=== PATIENT | male | born 1975 | race Caucasian/White ===

== ENCOUNTER 2023-07-07 06:57 | Inpatient (IN) | payer OTHER, SELFPAY ==
[2023-07-07] VITALS (16 sets, daily range): BP systolic 110–185; BP diastolic 56–130; BMI 22.4; BMI 21.1
--- NOTE | 2023-07-07 03:40 | ED.GENMED ---
History of Present Illness
General
Chief Complaint: Vomiting Blood
Source: patient
Time Seen by Provider: 07/07/23 03:33
Travel History
Have you had any contact with someone who has COVID-19?: No
Do you have any symptoms of coronavirus? Fever > 100 degrees, chills, cough, shortness of breath, sore throat, loss of taste or smell, muscle aches, or headache?: No
History of Present Illness
History of Present Illness:
47-year-old male presents to the emergency room complaining of vomiting, abdominal pain, no bowel movement for a week. Patient resides at [facility]. He has been experiencing abdominal pain and constipation for the past
several days. He evidently was treated with an enema during the night without improvement. Patient began having vomiting up black material. Patient does have a significant surgical history. He states he had part of his large intestine removed a
couple years ago. 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 Patient states he was in the intensive care unit due to DKA when he developed ischemic bowel.
Past History
Past History
ED Past Medical History: IDDM
ED Past Surgical History: Bowel resection
Social History
Tobacco: Smoker
Alcohol: Occasional
Drug: Marijuana
Employment: Employed
Review of Systems
Review of Systems
All Other Systems: ROS reviewed and negative except as documented in HPI and ROS
Phy Exam
Physical Exam
Physical Exam:
General: Awake, Alert, Oriented X3. Patient appears very uncomfortable
Vitals: Tachycardic
Head: Atraumatic
Eyes: Pupils equal, EOMI
Throat: Airway intact, no exudates
Neck: Trachea midline
Lungs: Clear and equal b/l
Heart: Regular rate, no murmurs
Abd: Soft, distended, diffusely tender, No pulsatile mass
Rectal:
Neuro: Nonfocal
Skin: Warm, dry, no rash
Extremities: pulses equal b/l, no edema
Course
Orders/Labs/Results
Orders:
Orders
07/07/23 03:39
CT Abd/Pel (IV only)-DH only Urgent
Comment:
Reason For Exam: Abdominal pain, vomiting, unable to tolerate oral
0.9% Sodium Chloride 1000 ml [Nss] 1,000 ml IV BOLUS
HYDROmorphone [Dilaudid] 1 mg IV NOW STA
07/07/23 03:41
Ondansetron Injectable [Zofran] 4 mg IV NOW STA
07/07/23 03:59
Complete Blood Count/With Diff Urgent
Comprehensive Metabolic Panel Urgent
Lactic Acid Urgent
Lipase Urgent
07/07/23 04:42
Lorazepam [Ativan] 2 mg .ROUTE .STK-MED ONE
07/07/23 04:43
NG Tube [GI tube insertion- Treatment] ONCE
07/07/23 04:49
Lactated Ringers [Lr] 1,000 ml IV BOLUS
07/07/23 05:40
HYDROmorphone [Dilaudid] 0.5 mg IV NOW STA
Abnormal Lab Results
07/07/23
03:59
WBC 15.9 H 10^3/uL
(4.8-10.8)
MCV 79.8 L fL
(80.0-94.0)
MPV 10.7 H fL
(7.4-10.4)
Abs Immat Gran (auto) 0.1 H 10^3/uL
(0-0.05)
Absolute Neuts (auto) 14.0 H 10^3/uL
(1.4-6.5)
Immature Gran % 0.7 H %
(0-0.5)
Neutrophils % 87.7 H %
(42.2-75.2)
Lymphocytes % 8.0 L %
(20.5-51.1)
Chloride 95 L mmol/L
(98-107)
BUN 25 H mg/dl
(9-20)
Glucose 242 H mg/dl
(70-99)
Lactic Acid 4.0 H* mmol/L
(0.7-2.0)
Calcium 10.7 H mg/dl
(8.4-10.2)
Alkaline Phosphatase 158 H U/L
(38-126)
Total Protein 8.8 H g/dl
(6.3-8.2)
Albumin 5.2 H g/dl
(3.5-5.0)
07/07/23 03:59
07/07/23 03:59
Vital Signs
Initial and Last Documented VS:
Initial Vital Signs
Pulse Resp
126 26
07/07/23 03:20 07/07/23 03:20
Last Documented Vital Signs
Pulse Resp BP Pulse Ox
131 20 141/110 100
07/07/23 05:15 07/07/23 05:15 07/07/23 03:32 07/07/23 03:33
MDM/Problems Addressed
Differential Diagnosis Includes:
small bowel obstruction, gastritis, constipation
MDM/Problems Addressed:
Patient presents with severe abdominal pain, nausea vomiting. His vomitus appears feculent. His exam is concerning for a small bowel obstruction. CT was performed with IV contrast but without oral contrast because the patient could not tolerate
consuming oral contrast. CT suggestive of small bowel obstruction. Radiologist mention swirling of the mesentery and concern for an internal hernia. After receiving the results from [facility] I communicated with Dr. Vann. He will see
the patient this morning. An NG tube was placed. IV fluid resuscitation was initiated with 1 L normal saline to be followed by 1 L of LR. Analgesia provided. We will attempt to obtain the op note from the patient's surgery at [facility]
[place].
Chronic conditions affecting care: DM
*Radiology
Radiology exam reviewed: other (Patient report reviewed.)
*Pulse Oximetry
Patient hypoxic: no
*Inside Sales Director Interpretation
Rate: tachycardiac
Interpretation: abnormal
Rhythm: sinus tachycardia
*Critical Care Note
Total Time (30-74mins, 75-104mins- exclusive of procedures): 35 min
comment:
Critical care statement: A total of 35 minutes of critical care time was provided for this patient. This includes management of unstable vital signs, evaluation of the patient at bedside, reviewing the patient's pertinent medical records, discussion
with consultants, review of old EKGs and review of pertinent medical records. This time with separate from time utilized to perform the aforementioned documented procedures
Patient Management
Social determinants of health affecting care: Living situation ([facility])
ED Attending Note
-
Portions of this chart may have been created with voice recognition software.� Occasional wrong word or��sound alike� substitutions may have occurred due to the inherent limitations of voice recognition software.
Discharge Plan
Departure
Patient Disposition: Admit
Date of Disposition: 07/07/23
Time of Disposition: 05:40
Admit to: Med/Surg and IMU
Presentation/result/management discussed w/ accepting MD/DO: Hospitalist
Condition: Fair
Discharge Problem:
SBO (small bowel obstruction)
Prescriptions:
No Action
levothyroxine 25 mcg Tablet
25 mcg PO DAILY
buspirone 10 mg Tablet
10 mg PO BID
mirtazapine 15 mg Tablet
15 mg PO HS
nortriptyline 50 mg Capsule
50 mg PO HS
insulin NPH and regular human 100 unit/mL (70-30) Insulin Pen
25 unit SC BID
doxycycline hyclate 100 mg capsule
100 mg PO BID Qty: 28 0RF
Referrals:
[facility] [Family Provider] -
Interventions
Interventions:
*General Assessment Last Done: 07/07/23 03:16
*ED COVID-19 Vaccine History Last Done: 07/07/23 03:16
[facility]-Qcsjsl-Hqqgnggjck Assessment Last Done: 07/07/23 03:33
ED- Cardiac Assessment Last Done: 07/07/23 03:33
ED- Pulmonary Assessment Last Done: 07/07/23 03:33
Discharge Date and Time
Print Language: UZBEK
[2023-07-07] MEDS: NSS 1000 IV ×5 (04:04→18:02)
[2023-07-07 04:05] LABS: % Basophils 0.4 % (0-2); % Eosinophils 0.1 % (0-6); % Immature Granulocytes 0.7 % (0-0.5); % Monocytes 3.1 % (1.7-9.3); % Neutrophils 87.7 % (42.2-75.2); Absolute Basophils 0.1 10^3/uL (0-0.2); Absolute Immature Granulocytes 0.1 10^3/uL (0-0.05); Absolute Lymphocytes 1.3 10^3/uL (1.2-3.4); Absolute Monocytes 0.5 10^3/uL (0.1-0.6); Hematocrit 45.3 % (39.0-52.0); Hemoglobin 16.2 g/dL (13.0-18.0); Mean Corp Hgb Conc. 35.8 g/dL (33.0-37.0); Mean Corpuscular Hgb 28.5 pg (27.0-31.0); Mean Corpuscular Volume 79.8 fL (80.0-94.0); Mean Platelet Volume 10.7 fL (7.4-10.4); Nucleated Red Blood Cells % 0 % (-); Platelet Count 302 10^3/uL (130-400); Red Blood Cell Count 5.68 10^6/uL (4.70-6.10); Red Cell Dist. Width 12.5 % (11.5-14.5); White Blood Cell Count 15.9 10^3/uL (4.8-10.8)
[2023-07-07] MEDS: DILAUDID 1 MG IV ×2 (04:05→22:40)
[2023-07-07] MEDS: ZOFRAN 4 MG IV ×2 (04:05→07:10)
[2023-07-07 04:26] LABS: ALT (SGPT) 41 U/L (0-50); AST (SGOT) 36 U/L (17-59); Albumin 5.2 g/dl (3.5-5.0); Alkaline Phosphatase 158 U/L (38-126); Blood Urea Nitrogen 25 mg/dl (9-20); Calcium 10.7 mg/dl (8.4-10.2); Carbon Dioxide 27 mmol/L (22-30); Chloride 95 mmol/L (98-107); Estimated Creatinine Clearance 77 ml/min; Glucose 242 mg/dl (70-99); Lipase 121 U/L (23-300); Potassium 4.6 mmol/L (3.5-5.1); Sodium 138 mmol/L (135-145); Total Bilirubin 1.2 mg/dl (0.2-1.3); Total Protein 8.8 g/dl (6.3-8.2); eGFR > 60.00
[2023-07-07] MEDS: DILAUDID 0.5 MG IV ×5 (05:43→18:01)
[2023-07-07] MEDS: LR 1000 IV (06:23)
--- NOTE | 2023-07-07 06:29 | HPS.HSE ---
Family Physician
-
Family Physician: Facility [facility]
Chief Complaint
-
Abd Pain, N/V
History of Present Illness
Patient is a 47y M with PMH significant for DM-I and prior small bowel resection / mesenteric ischemia who presents to ED complaining of abdominal pain and N/V. Patient states that he started with diffuse abdominal pain on . He
developed N/V x multiple episodes and noted some dark / coffee-ground emesis. No bright red blood. Patient was brought to the ED for further evaluation and treatment. CT shows evidence of SBO with possible transition at anastomosis site and
possible internal hernia.
NG was placed in the ED for large amount of dark, bilious return. Patient notes minimal improvement in his symptoms thus far.
Patient states that he has not moved his bowels in > 1 week.
Medical History
Past Medical History
Past Medical History: Reports Other
Additional Past Medical History:
DM-I with Polyneuropathy
GERD
Ischemic Bowel
Cardiac Arrest
? Thyroid Disease
Past Surgical History: Reports Other
Additional Past Surgical History:
Ex Lap / Small Bowel Resection
Left Great Toe Amputation
Social History
Tobacco: Smoker (Daily vape use +/- cigarettes. 30 pack years.)
Alcohol: None
Drug: Former User (History of polysubstance abuse including IVDA. Last IV use was 2014.)
Living: Halfway
Family History
Family History: Not pertinent
Allergies / Home Medications
Allergies reflects when Allergies were last updated in [facility].
Home Medications with original date entered in [facility]
Allergy/Medication List:
Allergies
Allergy/AdvReac Type Severity Reaction Status Date / Time
No Known Allergies Allergy Verified 07/07/23 03:16
Home Medications
amoxicillin 500 mg tablet 500 mg PO BID 07/07/23
bisacodyl 5 mg tablet,delayed release (Dulcolax (bisacodyl)) 10 mg PO BIDPRN PRN Constipation 07/07/23
clonazepam 0.5 mg tablet 0.5 mg PO BID 07/07/23
diphenhydramine HCl 25 mg capsule (Benadryl) 25 mg PO DAILY 07/07/23
docusate sodium 100 mg tablet 100 mg PO BID 07/07/23
ibuprofen 400 mg tablet 400 mg PO TID 07/07/23
insulin human U-100 NPH-regulr 70-30 mix 100 unit/mL subcutaneous susp 20 unit SC BID 07/07/23
quetiapine 25 mg tablet (Seroquel) 25 mg PO DAILY 07/07/23
quetiapine 50 mg tablet (Seroquel) 50 mg PO HS PRN Sleep 07/07/23
Review of Systems
-
History Source: Patient
A 12 point ROS was completed and negative except as noted: Yes
Constitutional: Denies Fever or Chills
Respiratory: Denies Cough or Trouble Breathing
Cardiac: Denies Chest Pain or Palpitations
Abdomen/GI: Reports Abdominal Pain, Nausea, Vomiting and Constipated; Denies Bloody Stools or Black Stools
: Denies Dysuria or Frequency
Musculoskeletal: Denies Edema
Neurological: Denies Dizzy or Headache
Physical Exam
Vital Signs
Vital Signs
Pulse Resp BP Pulse Ox
122 25 166/109 100
07/07/23 06:00 07/07/23 06:00 07/07/23 06:00 07/07/23 03:33
Physical Exam
General: Other (47y M in mild distress due to pain / nausea.)
HEENT: Moist mucous membranes, PERRLA and Other (NG in place draining copious, dark, bilious fluid.)
Respiratory: Clear; No Wheezes, Rales or Rhonchi
Cardiac: S1/S2 and Regular Rhythm; No Murmur
GI: Other (Bowel sounds are diminished but present. Mild, diffuse tenderness with voluntary guarding. No rebound. )
Musculoskeletal: No Clubbing, No Cyanosis and No Edema
Neuro: AO x 3
Laboratory Results
-
07/07/23 03:59
07/07/23 03:59
Laboratory Results
Lactic Acid 4.0 mmol/L (0.7-2.0) H* 07/07/23 03:59
Total Bilirubin 1.2 mg/dl (0.2-1.3) 07/07/23 03:59
AST 36 U/L (17-59) 07/07/23 03:59
ALT 41 U/L (0-50) 07/07/23 03:59
Alkaline Phosphatase 158 U/L (38-126) H 07/07/23 03:59
Lipase 121 U/L (23-300) 07/07/23 03:59
Impression/Plan
-
A/P: Patient is a 47y M with PMH significant for DM-I and prior intestinal ischemia who presents to ED complaining of abdominal pain with multiple episodes of N/V over the past 2 days.
SBO
Lactic Acidosis
- Admit for further evaluation and treatment.
- Continue NG decompression and quantify output.
- Supportive care including IVFs, pain control, etc.
- Follow lactate level for improvement with IVFs.
- Surgery consult for further evaluation.
GABY
Hypercalcemia
- SCr = 1.2 compared to prior baseline of 0.7.
- Likely secondary to prerenal etiology / hypovolemia due to GI losses.
- IVF support as noted above.
- Follow for improvement.
DM-I with Peripheral Polyneuropathy
- Stable. Maintained on 70/30 insulin + SSI.
- Change to Lantus for now while NPO.
- Monitor glucose and cover with SSI as needed.
- Update A1C.
- Adjust regimen for adequate glycemic control.
Mood Disorder
Polysubstance Abuse
- Hold PO medications for now with SBO / NG in place.
- Change BZD to IV / PRN.
- Change quetiapine to Zyprexa disintegrating tabs.
- Resume usual regimen once able to take POs.
- Try to minimize opioid use for pain control.
GERD / PUD
- Daily IV PPI.
Questionable Thyroid Disease
- Prior records suggest hypothyroidism and patient was previously on T4 supplementation.
- He denies thyroid disease and is not currently on any replacement.
- Check TFTs.
Dental Extraction
- Patient had tooth extracted . On hyacnith-procedure amoxicillin for prophylaxis.
- On IV Zosyn for now - discontinue if no fevers, worsening abdominal symptoms, etc.
DVT Prophylaxis: SCDs
Code Status: Full
[2023-07-07] MEDS: ATIVAN 0.5 MG IV ×2 (09:05→22:19)
[2023-07-07] MEDS: TORADOL 15 MG IV (09:05)
--- NOTE | 2023-07-07 09:16 | CON.GS ---
Consultation
-
Reason for Consultation: Small bowel obstruction
Medical History
-
Chief Complaint: Abdominal pain, nausea vomiting
History of Present Illness:
Patient is a 47-year-old male who reports a past surgical history of having undergone pyloromyotomy as a infant/child and then approximately 2 years ago developed a bowel obstruction undergoing exploratory laparotomy with a small bowel resection.
He was in his usual baseline state of health until when he began developing the acute onset of diffuse abdominal pain which continued to decline over the next 24 hours with nausea and vomiting and coffee-ground emesis. He was transported
from the [facility] to emergency department for evaluation early this a.m.
Last bowel movement reportedly a week ago.
Continues to experience abdominal pain and retching at times around the NG tube.
Past Medical History
Past Medical History: Other (Type 1 diabetes, polyneuropathy, GERD, cardiac arrest, thyroid disease)
Past Surgical History: Other (Left great toe amputation, pyloromyotomy as an , exploratory laparotomy small bowel suction 2021)
Social History
Tobacco: Smoker
Alcohol: None
Drug: Former User
Living: Long-Term
Family History
Family History: Reviewed & Not Pertinent
Allergies / Home Medications
Allergy/AdvReac Type Severity Reaction Status Date / Time
No Known Allergies Allergy Verified 07/07/23 03:16
�Medication �Instructions �Recorded �Confirmed �Type
amoxicillin 500 mg tablet 500 mg PO BID 07/07/23 07/07/23 History
bisacodyl 5 mg tablet,delayed 10 mg PO BIDPRN PRN Constipation 07/07/23 07/07/23 History
release (Dulcolax (bisacodyl))
clonazepam 0.5 mg tablet 0.5 mg PO BID 07/07/23 07/07/23 History
diphenhydramine HCl 25 mg capsule 25 mg PO DAILY 07/07/23 07/07/23 History
(Benadryl)
docusate sodium 100 mg tablet 100 mg PO BID 07/07/23 07/07/23 History
ibuprofen 400 mg tablet 400 mg PO TID 07/07/23 07/07/23 History
insulin human U-100 NPH-regulr 20 unit SC BID 07/07/23 07/07/23 History
70-30 mix 100 unit/mL subcutaneous
susp
quetiapine 25 mg tablet (Seroquel) 25 mg PO DAILY 07/07/23 07/07/23 History
quetiapine 50 mg tablet (Seroquel) 50 mg PO HS PRN Sleep 07/07/23 07/07/23 History
Review of Systems
-
Unable to obtain full review of systems at this time due to: Acuity
History Source: Patient
A 10 point review of systems was completed, and was negative except as per HPI.
Physical Exam
Vital Signs
Pulse Resp BP Pulse Ox
121 17 159/109 100
07/07/23 07:45 07/07/23 07:45 07/07/23 07:38 07/07/23 07:45
07/06/23 07/07/23 07/08/23
06:59 06:59 06:59
Actual Weight 72.7 kg
Body Mass Index (BMI) 22.4
Lab Results
07/07/23 03:59
07/07/23 03:59
WBC 15.9 10^3/uL (4.8-10.8) H 07/07/23 03:59
Hgb 16.2 g/dL (13.0-18.0) 07/07/23 03:59
Hct 45.3 % (39.0-52.0) 07/07/23 03:59
Plt Count 302 10^3/uL (130-400) 07/07/23 03:59
Abs Immat Gran (auto) 0.1 10^3/uL (0-0.05) H 07/07/23 03:59
Neutrophils % 87.7 % (42.2-75.2) H 07/07/23 03:59
Physical Exam
General: Pain and Other (Uncomfortable, retching around NG tube)
HEENT: Normocephalic, Anicteric and Moist Mucous Membranes
Respiratory: Non Labored Respirations
Cardiac: Regular Rhythm (Sinus tachycardia)
GI: Non Tender (Diffusely tender, difficult to assess rebound rigidity or guarding), Distended, Incisions (Right upper quadrant horizontal surgical scar, midline laparotomy surgical scar, no hernias) and Other (NG tube in place, flushed numerous
times to confirm functionality getting 500 to 600 mL of return)
Skin: Warm
Neuro: AO x 3
Data Reviewed
-
CT Scan: Image Personally Visualized and interpreted, Report Reviewed by me and Discussed with Patient
Labs: Labs Reviewed by me
Assessment / Plan
-
Assessment: Patient is a 47-year-old male presented with acute small bowel obstruction with secondary leukocytosis, dehydration with ARF and lactic acidosis but normal carbon dioxide on labs earlier in a.m.
CT imaging personally reviewed. Severely dilated stomach and proximal small bowel loops. Transition point appears to be just at or distal to his small bowel anastomosis. There is some surrounding edema and free fluid. No free air, no
pneumatosis, no portal venous gas. Large stool burden. Distal ileum decompressed. Paucity of intra-abdominal fat makes it difficult to determine but there does not appear to be a closed-loop obstruction although this is likely high-grade.
NG tube functionality was confirmed by myself getting back an additional 500 to 600 mL of gastric contents.
Discussed with patient CT imaging findings consistent with probable high-grade small bowel obstruction. No clear radiographic signs of bowel compromise or ischemia other than degree of obstruction. We discussed treatment options of NG tube
decompression versus surgical intervention. Secondary to patient's current extremis we would lean towards surgical intervention which he is in agreement with. That being said, I think he could benefit from more aggressive resuscitation and NG tube
decompression and current OR team in middle of the operative procedure.
Plan: Additional liter bolus of normal saline followed by aggressive IV fluid resuscitation
Adjusted IV pain medication regiment
Discontinue Toradol
Maintain NG tube
Tentatively added patient onto the OR schedule however will reevaluate to see if there is any clinical improvement with further NG tube decompression and supportive care as we are waiting for availability of an OR.
Will continue to closely follow.
[2023-07-07 10:00] LABS: Lactic Acid 3.6 mmol/L (0.7-2.0)
[2023-07-07 10:02] LABS: % Basophils 0.3 % (0-2); % Immature Granulocytes 0.4 % (0-0.5); % Lymphocytes 6.8 % (20.5-51.1); % Monocytes 6.9 % (1.7-9.3); % Neutrophils 85.6 % (42.2-75.2); Absolute Lymphocytes 0.8 10^3/uL (1.2-3.4); Absolute Monocytes 0.8 10^3/uL (0.1-0.6); Absolute Neutrophils 9.7 10^3/uL (1.4-6.5); Hematocrit 43.9 % (39.0-52.0); Hemoglobin 15.5 g/dL (13.0-18.0); Mean Corp Hgb Conc. 35.3 g/dL (33.0-37.0); Mean Corpuscular Hgb 28.7 pg (27.0-31.0); Mean Corpuscular Volume 81.1 fL (80.0-94.0); Nucleated Red Blood Cells % 0 % (-); Platelet Count 260 10^3/uL (130-400); Red Blood Cell Count 5.41 10^6/uL (4.70-6.10); Red Cell Dist. Width 12.6 % (11.5-14.5); White Blood Cell Count 11.3 10^3/uL (4.8-10.8)
[2023-07-07 10:26] LABS: Blood Urea Nitrogen 30 mg/dl (9-20); Calcium 8.6 mg/dl (8.4-10.2); Carbon Dioxide 28 mmol/L (22-30); Chloride 96 mmol/L (98-107); Estimated Creatinine Clearance 71 ml/min; Glucose 353 mg/dl (70-99); Potassium 5.2 mmol/L (3.5-5.1); Sodium 135 mmol/L (135-145); eGFR > 60.00
--- NOTE | 2023-07-07 11:31 | W.PN.SURGUPD ---
Surgical Update
Surgical Update
Patient seen in follow-up in the emergency department.
Overall appears more comfortable, resting in his bed.
NG tube remains in place.
Patient states that he still has pain/discomfort but does report significant improvement
No further retching with NG tube
Tachycardia improving to the 110s; normotensive
NAD, AAOx3
ABD: More soft still a bit distended, mild tenderness but no significant rigidity and no guarding
NG tube in place
Laboratory testing reviewed. White blood cell count improved to 13.3. Hemoglobin stable at 15 5 as well as platelet count.
Lactic acidosis slightly improved 3.6, creatinine stable 1.3 BUN 30. Hyperkalemia now at 5.2 but patient's glucose now 353.
Given clinical improvement with NG tube decompression and no peritoneal signs on examination had further discussions with patient and recommended continued close observation with NG tube decompression, aggressive IV fluid hydration and glucose
management.
Still potentially may need surgery but deferring on urgency at this point as no clear signs of immediate bowel threat or compromise. Surgery would likely be safe for both from a surgical as well as medical risk standpoint after continue
resuscitation and decompression
Ordered an additional 1 L bolus of normal saline
Continue normal saline at 150 mL an hour
Continue NG tube decompression
Repeat labs in evening
Discussed with Dr. Ahmadi
[2023-07-07] MEDS: LANTUS SC (11:38)
[2023-07-07] MEDS: NSS IV (11:39)
[2023-07-07] MEDS: PROTONIX IV 40 MG IV (12:03)
[2023-07-07] MEDS: NSS (PRESERVATIVE FREE) 10 ML IV (12:04)
[2023-07-07] MEDS: ZOSYN 50 IV (12:08)
[2023-07-07 12:18] LABS: Glucose - Point of Care 373 mg/dl (70-99)
--- NOTE | 2023-07-07 12:45 | W.PN.HOSP.TC ---
Today's Communication/Plan
-
Insulin
Hemoglobin A1c
TSH
IV fluids
N.p.o.
Assessment / Plan
Assessment / Plan
Gen-AAOx3, NAD
HEENT-NC, AT, anicteric, clear oral mm
Neck-supple
CV-reg, no M, +S1/S2
Lungs-clear B/L
Abd-soft, nondistended, mildly tender diffusely, no guarding
Ext-no edema
Musculoskeletal-no cyanosis, clubbing
Skin-warm and dry
Neuro-grossly non-focal
Psych-calm, cooperative
Small bowel obstruction -discussed with Dr. Mcgregor. Keep n.p.o., IV fluids, monitor overnight. Lactic acidosis noted, repeat pending.
DM1 with hyperglycemia -glucose 353 this morning. Hemoglobin A1c pending. He uses 25 units of 70/30 insulin twice daily, regular insulin sliding scale. Doubt compliance given his drug abuse history and recent incarceration. Anion gap 11. No
evidence of DKA.
Currently on glargine insulin 8 units twice daily and low resistance NovoLog scale in the hospital.
GABY -due to volume depletion. Continue IV fluids. Creatinine 1.3. Baseline unknown.
Hyperkalemia -potassium 5.2.
Diabetic peripheral neuropathy
Polysubstance abuse history
GERD/peptic ulcer disease
Recent dental extraction -stop further IV antibiotics. Observe.
Full code
Anticipated Discharge: > 48 hours
Subjective/Interval History
-
Date of Service: July 07, 2023
Patient seen and examined. Lying on his stomach when I walked in, still complaining of abdominal discomfort.
Objective Data
-
Labs:
Laboratory Results
07/07/23 07/07/23 07/07/23
03:59 09:38 09:39
WBC 15.9 H 11.3 H
Hgb 16.2 15.5
Hct 45.3 43.9
Plt Count 302 260
Sodium 138 135
Potassium 4.6 5.2 H
Chloride 95 L 96 L
Carbon Dioxide 27 28
BUN 25 H 30 H
Creatinine 1.2 1.3
Glucose 242 H 353 H
Calcium 10.7 H 8.6 D
Total Bilirubin 1.2
AST 36
ALT 41
Alkaline Phosphatase 158 H
07/07/23
18:00
WBC Pending
Hgb Pending
Hct Pending
Plt Count Pending
Sodium Pending
Potassium Pending
Chloride Pending
Carbon Dioxide Pending
BUN Pending
Creatinine Pending
Glucose Pending
Calcium Pending
Total Bilirubin
AST
ALT
Alkaline Phosphatase
Vital Signs:
Vital Signs
Pulse Resp BP Pulse Ox
115 13 128/76 100
07/07/23 11:15 07/07/23 11:15 07/07/23 11:02 07/07/23 11:02
Review of Systems
-
History Source: Patient
All other systems: Reviewed and negative
[2023-07-07] MEDS: LANTUS 0.0800000000000000017 UNITS SC ×2 (12:49→22:41)
[2023-07-07] MEDS: NOVOLOG FLEXPEN-LOW RESISTANCE 5 UNITS SC (12:51)
[2023-07-07] MEDS: NOVOLOG FLEXPEN-LOW RESISTANCE SC (13:40)
[2023-07-07 14:13] LABS: Glycohemoglobin (HgbA1c) 11.3 % (4.0-5.6)
[2023-07-07 14:56] LABS: TSH Reflex To Free T4 1.99 uIU/ml (0.47-4.68)
[2023-07-07 17:29] LABS: Hemoglobin 13.8 g/dL (13.0-18.0); Mean Corp Hgb Conc. 35.4 g/dL (33.0-37.0); Mean Corpuscular Hgb 28.7 pg (27.0-31.0); Mean Corpuscular Volume 81.1 fL (80.0-94.0); Mean Platelet Volume 10.7 fL (7.4-10.4); Platelet Count 245 10^3/uL (130-400); Red Blood Cell Count 4.81 10^6/uL (4.70-6.10); Red Cell Dist. Width 12.8 % (11.5-14.5); White Blood Cell Count 12.3 10^3/uL (4.8-10.8)
[2023-07-07 17:42] LABS: Lactic Acid 1.9 mmol/L (0.7-2.0)
[2023-07-07 17:43] LABS: Blood Urea Nitrogen 44 mg/dl (9-20); Calcium 8.1 mg/dl (8.4-10.2); Carbon Dioxide 26 mmol/L (22-30); Chloride 99 mmol/L (98-107); Estimated Creatinine Clearance 62 ml/min; Glucose 402 mg/dl (70-99); Sodium 136 mmol/L (135-145); eGFR > 60.00
[2023-07-07] MEDS: NOVOLOG FLEXPEN-LOW RESISTANCE 6 UNITS SC (18:31)
[2023-07-07] MEDS: ZYPREXA ZYDIS (ORALLY DISINTEGRATING) 5 MG PO (22:18)
[2023-07-07 22:20] LABS: Lactic Acid 4.2 mmol/L (0.7-2.0)
[2023-07-07 23:51] LABS: Glucose - Point of Care 264 mg/dl (70-99)
[2023-07-08] MEDS: NSS 1000 IV ×3 (00:21→11:38)
[2023-07-08] MEDS: NOVOLOG FLEXPEN-LOW RESISTANCE 3 UNITS SC (00:22)
--- NOTE | 2023-07-08 01:35 | W.PN.UPDATE ---
Update Note
Progress Note Update
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 was given 2L of fluids and maintained on NSS @150cc/hr. Patient seen any evaluated. + BS, soft, tender to deep palpation, no guarding noted, sated he had small BM with diarrhea, NG tube in
place draining green bile 800 CC drained at 10 PM, Reports 08/28, although not in apparent distress, Denies any chest pain or shortness of breath, 98.7, 102, 16, 110/73, 98% RA, BS 264, Dr. Mcgregor made aware via text, advised to give 1L NS bolus,
Will order lactic acid in AM, and maintain on IV fluids after the bolus. No other complaints at present.
[2023-07-08 03:00] VITALS: BP 127/65
[2023-07-08 04:13] LABS: Lactic Acid 1.6 mmol/L (0.7-2.0)
[2023-07-08 05:48] LABS: Glucose - Point of Care 157 mg/dl (70-99)
[2023-07-08] MEDS: NOVOLOG FLEXPEN-LOW RESISTANCE 1 UNITS SC ×2 (05:56→18:07)
[2023-07-08] MEDS: DILAUDID 1 MG IV ×2 (05:58→22:34)
[2023-07-08 07:21] VITALS: BP 118/66
--- NOTE | 2023-07-08 07:42 | W.PN.GS2 ---
Today's Communication / Plan
-
`
Assessment / Plan
-
Assessment: 47-year-old male presenting with probable high-grade small bowel obstruction.
Has responded well to aggressive IV fluid resuscitation and NG tube decompression with significant clinical improvement both in examination and vital signs.
A.m. labs pending
Drank fluids overnight so difficult to tell if NG tube outputs which are nonbilious in the canister are due to oral intake or true drainage
Plan: Given clinical improvement will obtain CT abdomen/pelvis with contrast to reevaluate degree of small bowel obstruction
If CT imaging confirms continued high-grade obstruction then recommend surgical intervention
If obstruction improving and partial then continue with medical management
Any of the patient's concerns or questions were fully addressed
Subjective Data
-
Date of Service: July 08, 2023
Patient seen and examined
Resting comfortably in his hospital bed
States his abdominal pain is much better than yesterday, no nausea, appetite returning
Still has some discomfort at times
Had bowel movements yesterday afternoon/evening semiformed to liquid
Objective Data
-
Intake and Output
07/07/23 07/08/23 07/09/23
06:59 06:59 06:59
Intake Total 120 / 120 240 / 240
Output Total 4910 / 4910 650 / 650
Balance -4790 / -4790 -410 / -410
Intake:
Oral fluids 240 / 240
Amount instilled into GI Tube ( 120 / 120
Total)
[place] Sump 120 / 120
Output:
Gastrointestinal tube output ( 4210 / 4210
Total)
[place] Sump 1710 / 1710
Urine, Voided 700 / 700 650 / 650
Other:
Number of approximated MODERATE 1
amounts of urine
Vital Signs
Temp Pulse Resp BP Pulse Ox
99.0 F 104 20 127/65 97
05/19/24 03:00 07/08/23 03:00 07/08/23 03:00 07/08/23 03:00 07/08/23 03:00
Calcium 8.1 mg/dl (8.4-10.2) L 07/07/23 17:19
Total Bilirubin 1.2 mg/dl (0.2-1.3) 07/07/23 03:59
AST 36 U/L (17-59) 07/07/23 03:59
ALT 41 U/L (0-50) 07/07/23 03:59
Alkaline Phosphatase 158 U/L (38-126) H 07/07/23 03:59
Total Protein 8.8 g/dl (6.3-8.2) H 07/07/23 03:59
Albumin 5.2 g/dl (3.5-5.0) H 07/07/23 03:59
Physical Exam
-
NAD AAOx3; comfortable and moving around freely in bed for examination
ABD: Softly distended, not tense like yesterday. Mild generalized tenderness, no rebound, no rigidity, no guarding
[2023-07-08] MEDS: OMNIPAQUE 50 ML PO (08:18)
[2023-07-08] MEDS: LANTUS 0.0800000000000000017 UNITS SC ×2 (08:19→22:33)
[2023-07-08] MEDS: PROTONIX IV 40 MG IV (08:19)
[2023-07-08] MEDS: NSS (PRESERVATIVE FREE) 10 ML IV (08:19)
[2023-07-08 08:48] LABS: Hematocrit 34.4 % (39.0-52.0); Hemoglobin 11.5 g/dL (13.0-18.0); Mean Corp Hgb Conc. 33.4 g/dL (33.0-37.0); Mean Corpuscular Hgb 28.7 pg (27.0-31.0); Mean Corpuscular Volume 85.8 fL (80.0-94.0); Mean Platelet Volume 10.9 fL (7.4-10.4); Platelet Count 198 10^3/uL (130-400); Red Blood Cell Count 4.01 10^6/uL (4.70-6.10); Red Cell Dist. Width 12.8 % (11.5-14.5); White Blood Cell Count 8.2 10^3/uL (4.8-10.8)
[2023-07-08 09:05] LABS: Blood Urea Nitrogen 36 mg/dl (9-20); Calcium 7.6 mg/dl (8.4-10.2); Carbon Dioxide 27 mmol/L (22-30); Chloride 103 mmol/L (98-107); Estimated Creatinine Clearance 87 ml/min; Glucose 155 mg/dl (70-99); Sodium 137 mmol/L (135-145); eGFR > 60.00
--- NOTE | 2023-07-08 09:29 | W.PN.HOSP.TC ---
Today's Communication/Plan
-
CT scan
Assessment / Plan
Assessment / Plan
Gen-AAOx3, NAD
HEENT-NC, AT, anicteric, clear oral mm, NG tube in place
Neck-supple
CV-reg, no M, +S1/S2
Lungs-clear B/L
Abd-soft, nondistended, less tender, no guarding
Ext-no edema
Musculoskeletal-no cyanosis, clubbing
Skin-warm and dry
Neuro-grossly non-focal
Psych-calm, cooperative
Small bowel obstruction -improving overall. Moved bowels yesterday. For repeat CT abdomen and pelvis today as per surgery. Still NPO.
DM1 with hyperglycemia -glucose improving. Hemoglobin A1c 11.3%. He uses 25 units of 70/30 insulin twice daily, regular insulin sliding scale. Doubt compliance given his drug abuse history and recent incarceration. No evidence of DKA.
Currently on glargine insulin 8 units twice daily and low resistance NovoLog scale in the hospital.
GABY -due to volume depletion. Renal function improved with IV fluids.
Hyperkalemia -resolved.
Diabetic peripheral neuropathy
Polysubstance abuse history
GERD/peptic ulcer disease
Recent dental extraction -stop further IV antibiotics. Observe.
Full code
Anticipated Discharge: 24 - 48 hours
Subjective/Interval History
-
Date of Service: July 08, 2023
Patient seen and examined. Feeling better overall. No complaints.
Objective Data
-
Labs:
Laboratory Results
07/08/23
08:25
WBC 8.2
Hgb 11.5 L
Hct 34.4 L
Plt Count 198
Sodium 137
Potassium 4.0
Chloride 103
Carbon Dioxide 27
BUN 36 H
Creatinine 1.0
Glucose 155 H
Calcium 7.6 L
Vital Signs:
Vital Signs
Temp Pulse Resp BP Pulse Ox
98.4 F 90 18 118/66 96
07/08/23 07:21 07/08/23 07:21 07/08/23 07:21 07/08/23 07:21 07/08/23 07:21
I&O
07/07/23 07/08/23 07/09/23
06:59 06:59 06:59
Intake Total 120 / 120 240 / 240
Output Total 4910 / 4910 650 / 650
Balance -4790 / -4790 -410 / -410
Review of Systems
-
History Source: Patient
All other systems: Reviewed and negative
[2023-07-08 11:21] VITALS: BP 144/76
[2023-07-08 11:29] LABS: Glucose - Point of Care 105 mg/dl (70-99)
[2023-07-08] MEDS: NOVOLOG FLEXPEN-LOW RESISTANCE SC ×2 (11:29→14:41)
[2023-07-08] MEDS: DILAUDID 0.5 MG IV ×2 (11:38→18:08)
--- NOTE | 2023-07-08 13:39 | W.PN.SURGUPD ---
Surgical Update
Surgical Update
pt seen and examined in follow up after CT imaging
drank oral contrast well. no nausea or pain with contrast. thirsty and asking to drink.
NGT on LIWS and no residual
CT imaging reviewed. much improvement in prior gastric and SB distention. residual SB dilation and some thickening/edema
obstruction may be resolving, oral contras seems to pass distal to anastomosis but not yet into the colon.
given clinical improvement will PO challenge with NGT clamped.
start with clears only today. if nausea/distention returns then would return NGT to LIWS
follow up abd xray in AM
[2023-07-08 14:00] LABS: Glucose - Point of Care 111 mg/dl (70-99)
--- NOTE | 2023-07-08 16:23 | CM ---
Patient from [facility].
DX SBO, ct scan. NPO, ngt.
Plan: Back to [facility]
[2023-07-08 17:57] LABS: Glucose - Point of Care 194 mg/dl (70-99)
[2023-07-08 19:43] VITALS: BP 117/75
[2023-07-08] MEDS: ATIVAN 0.5 MG IV (20:36)
[2023-07-08] MEDS: ZYPREXA ZYDIS (ORALLY DISINTEGRATING) 5 MG PO (20:36)
[2023-07-08] MEDS: NSS (PRESERVATIVE FREE) 0.25 ML IV (20:37)
[2023-07-08 23:03] VITALS: BP 155/96
[2023-07-09 00:38] LABS: Glucose - Point of Care 66 mg/dl (70-99)
--- NOTE | 2023-07-09 00:50 | PTCARENOTE ---
Pt had blood sugar of 66. RN entered the room to give 4oz of juice per hypoglycemia protocol. PT stated they pulled out their [place] sump tube. HOME HEALTH SPEECH THERAPIST Sirena Chu notified via [place] text.
[2023-07-09 01:08] LABS: Glucose - Point of Care 58 mg/dl (70-99)
[2023-07-09 01:23] LABS: Glucose - Point of Care 67 mg/dl (70-99)
[2023-07-09 01:57] LABS: Glucose - Point of Care 134 mg/dl (70-99)
[2023-07-09] MEDS: D5/0.9% SODIUM CHLORIDE 1000 IV ×2 (02:37→13:14)
[2023-07-09] MEDS: DILAUDID 1 MG IV ×5 (03:07→17:42)
[2023-07-09 03:50] VITALS: BP 145/98
[2023-07-09 04:55] LABS: Glucose - Point of Care 182 mg/dl (70-99)
[2023-07-09 06:02] LABS: Glucose - Point of Care 190 mg/dl (70-99)
[2023-07-09 07:00] VITALS: BP 143/82
[2023-07-09] MEDS: NSS IV (07:54)
[2023-07-09 09:48] LABS: Glucose - Point of Care 172 mg/dl (70-99)
[2023-07-09] MEDS: NOVOLOG FLEXPEN-LOW RESISTANCE 1 UNITS SC (09:52)
[2023-07-09] MEDS: PROTONIX IV 40 MG IV (09:53)
[2023-07-09] MEDS: LANTUS 0.0800000000000000017 UNITS SC ×2 (09:53→22:49)
[2023-07-09] MEDS: NSS (PRESERVATIVE FREE) 10 ML IV (09:53)
[2023-07-09] MEDS: ATIVAN 0.5 MG IV ×2 (10:40→22:47)
[2023-07-09 11:00] VITALS: BP 150/94
--- NOTE | 2023-07-09 11:19 | CM ---
relief manager reviewed patient's chart and plan is for patient to return to [facility] when stable.
[facility]

Plan; Patient to return to [facility] when stable.
--- NOTE | 2023-07-09 11:38 | W.PN.GS2 ---
Today's Communication / Plan
-
Continue nonoperative management of his small bowel obstruction.
Okay for fulls.
Assessment / Plan
-
Assessment: 47-year-old incarcerated male with a history of an open pyloromyotomy as a child as well as an SBR for 'necrotic bowel' at [facility] who presents from custodial with a probable high-grade small bowel obstruction on CT. X-ray from this
morning demonstrates improved small bowel distention, though this is still present and air in the colon with minimal fecal load compared to CT. Difficult to identify any residual contrast.
Continue nonoperative management of small bowel obstruction.
Okay for full liquid diet
Now that he is passing flatus and having return of bowel function, would be aggressive with his bowel regimen twice daily Dulcolax, daily MiraLAX and suppositories as needed.
Minimize narcotics as this will contribute to constipation and potentially increasing his pain.
General surgery will continue to follow with serial abdominal exams.
Time Spent
Total Time Spent with Patient (in minutes): 20
Subjective Data
-
Date of Service: July 09, 2023
Interval Events:
No acute events overnight. Slept well. Pain Controlled. Denies Nausea/Vomiting, +bowel function. Tolerating diet.
Objective Data
-
Intake and Output
07/08/23 07/09/23 07/10/23
06:59 06:59 06:59
Intake Total 120 / 120 1740 / 1740
Output Total 4910 / 4910 5050 / 5050
Balance -4790 / -4790 -3310 / -3310
Intake:
Oral fluids 1660 / 1660
Amount instilled into GI Tube ( 120 / 120 80 / 80
Total)
[place] Sump 120 / 120 80 / 80
Output:
Gastrointestinal tube output ( 4210 / 4210 1400 / 1400
Total)
Gastrostomy 700 / 700
[place] Sump 1710 / 1710 700 / 700
Urine, Voided 700 / 700 3650 / 3650
Other:
Number of approximated MODERATE 1
amounts of urine
Vital Signs
Temp Pulse Resp BP Pulse Ox
98.6 F 85 16 143/82 98
07/09/23 07:00 07/09/23 07:00 07/09/23 07:00 07/09/23 07:00 07/09/23 07:00
Lab Results
07/08/23 08:25
07/08/23 08:25
Calcium 7.6 mg/dl (8.4-10.2) L 07/08/23 08:25
Total Bilirubin 1.2 mg/dl (0.2-1.3) 07/07/23 03:59
AST 36 U/L (17-59) 07/07/23 03:59
ALT 41 U/L (0-50) 07/07/23 03:59
Alkaline Phosphatase 158 U/L (38-126) H 07/07/23 03:59
Total Protein 8.8 g/dl (6.3-8.2) H 07/07/23 03:59
Albumin 5.2 g/dl (3.5-5.0) H 07/07/23 03:59
Physical Exam
-
GENERAL/NEURO: Awake, Alert, no distress
CHEST: Unlabored breathing on RA
ABDOMEN: Soft, Non-Tender, mildly distended
--- NOTE | 2023-07-09 11:39 | W.PN.HOSP.TC ---
Today's Communication/Plan
-
diet per surgery
trend poc
Assessment / Plan
Assessment / Plan
Gen-AAOx3, NAD
HEENT-NC, AT, anicteric, clear oral mm,
Neck-supple
CV-reg, no M, +S1/S2
Lungs-clear B/L
Abd-soft, nondistended non tender, no guarding
Ext-no edema
Musculoskeletal-no cyanosis, clubbing
Skin-warm and dry
Neuro-grossly non-focal
Psych-calm, cooperative
Small bowel obstruction -improving overall. Moved bowels earlier today. AXR with improvement. on Fulls. advance per surgery.
DM1 with hyperglycemia -glucose improving. Hemoglobin A1c 11.3%. He uses 25 units of 70/30 insulin twice daily, regular insulin sliding scale. Doubt compliance given his drug abuse history and recent incarceration. No evidence of DKA.
Currently on glargine insulin 8 units twice daily and low resistance NovoLog scale in the hospital. POC 172
GABY -due to volume depletion. Renal function improved with IV fluids.
Hyperkalemia -resolved.
Diabetic peripheral neuropathy
Polysubstance abuse history
GERD/peptic ulcer disease
Recent dental extraction -stop further IV antibiotics. Observe.
Full code
Anticipated Discharge: Within 24 hours
Subjective/Interval History
-
Date of Service: July 09, 2023
had loose bm earlier today
no nausea or vomiting
Objective Data
-
Vital Signs:
Vital Signs
Temp Pulse Resp BP Pulse Ox
98.6 F 85 16 143/82 98
07/09/23 07:00 07/09/23 07:00 07/09/23 07:00 07/09/23 07:00 07/09/23 07:00
I&O
07/08/23 07/09/23 07/10/23
06:59 06:59 06:59
Intake Total 120 / 120 1740 / 1740
Output Total 4910 / 4910 5050 / 5050
Balance -4790 / -4790 -3310 / -3310
[2023-07-09 13:12] LABS: Glucose - Point of Care 226 mg/dl (70-99)
[2023-07-09] MEDS: NOVOLOG FLEXPEN-LOW RESISTANCE 2 UNITS SC (13:14)
[2023-07-09 16:45] LABS: Glucose - Point of Care 411 mg/dl (70-99)
[2023-07-09 17:27] LABS: Glucose 351 mg/dl (70-99)
[2023-07-09] MEDS: NOVOLOG FLEXPEN-LOW RESISTANCE 5 UNITS SC (17:42)
--- NOTE | 2023-07-09 18:27 | VATNOTE ---
unsuccessful IV restart x2; another VAT RN to attempt.
--- NOTE | 2023-07-09 18:28 | PTCARENOTE ---
At 1745, gave pt 1 mg of Iv dilaudid through piggyback port to IV fluids. The entire dose went through piggy back port, with some resistance. I noticed the tip of the IV catheter was coming out a little. I called Iv team to replace line, but not
sure how much of 1mg of dilaudid the pt received. Pt reports not getting entire dose. Dr. Nolasco was notified and said I can give the additional dose of 0.5 mg of dilaudid to hold the pt over.
[2023-07-09] MEDS: DILAUDID 0.5 MG IV ×2 (18:32→21:33)
[2023-07-09 19:44] VITALS: BP 129/84
[2023-07-09 21:48] LABS: Glucose - Point of Care 471 mg/dl (70-99)
[2023-07-09 22:26] LABS: Glucose 372 mg/dl (70-99)
[2023-07-09] MEDS: D5/0.9% SODIUM CHLORIDE IV (22:53)
[2023-07-09 23:00] VITALS: BP 131/78
[2023-07-10 01:05] LABS: Glucose - Point of Care 295 mg/dl (70-99)
[2023-07-10 03:13] VITALS: BP 128/61
[2023-07-10 06:00] VITALS: BMI 20.9
[2023-07-10 07:06] LABS: Glucose - Point of Care 180 mg/dl (70-99)
[2023-07-10 07:16] LABS: Blood Urea Nitrogen 9 mg/dl (9-20); Calcium 8.8 mg/dl (8.4-10.2); Carbon Dioxide 25 mmol/L (22-30); Chloride 104 mmol/L (98-107); Estimated Creatinine Clearance 123 ml/min; Glucose 175 mg/dl (70-99); Magnesium 1.7 mg/dl (1.6-2.3); Sodium 137 mmol/L (135-145); eGFR > 60.00
[2023-07-10 07:43] VITALS: BP 125/68
[2023-07-10] MEDS: NOVOLOG FLEXPEN-LOW RESISTANCE 1 UNITS SC (08:53)
[2023-07-10] MEDS: SEROQUEL 25 MG PO (08:54)
[2023-07-10] MEDS: NSS (PRESERVATIVE FREE) 10 ML IV (08:54)
[2023-07-10] MEDS: LANTUS 0.0800000000000000017 UNITS SC (08:54)
[2023-07-10] MEDS: PROTONIX IV 40 MG IV (08:54)
[2023-07-10] MEDS: DILAUDID 1 MG IV ×2 (09:01→14:28)
--- NOTE | 2023-07-10 09:10 | W.PN.GS2 ---
Today's Communication / Plan
-
-- LRD
-- Aggressive bowel regimen daily Dulcolax, daily MiraLAX and suppositories as needed.
-- OK for DC from surgical perspective once tolerating LRD
Assessment / Plan
-
Assessment: 47-year-old incarcerated male p/w adhesive SBO
AVSS, WBC normal
Clinical and radiographic improvement.
Constipated
No plans for surgical intervention. Advance to LRD. DC on stool softeners.
-- LRD
-- Aggressive bowel regimen twice daily Dulcolax, daily MiraLAX and suppositories as needed.
-- Minimize narcotics as this will contribute to constipation and potentially increasing his pain.
-- OK for DC from surgical perspective once tolerating LRD
Subjective Data
-
Date of Service: July 10, 2023
No complaints. Denies worsening abdominal pain, nausea, or vomiting. Passing flatus and BMs. Afebrile.
Objective Data
-
Intake and Output
07/09/23 07/10/23 07/11/23
06:59 06:59 06:59
Intake Total 1740 / 1740 620 / 620
Output Total 5050 / 5050
Balance -3310 / -3310 620 / 620
Intake:
Oral fluids 1660 / 1660 620 / 620
Amount instilled into GI Tube ( 80 / 80
Total)
[place] Sump 80 / 80
Output:
Gastrointestinal tube output ( 1400 / 1400
Total)
Gastrostomy 700 / 700
[place] Sump 700 / 700
Urine, Voided 3650 / 3650
Other:
Number of approximated LARGE 4
amounts of urine
Vital Signs
Temp Pulse Resp BP Pulse Ox
97.5 F 76 12 125/68 98
07/10/23 07:43 07/10/23 07:43 07/10/23 07:43 07/10/23 07:43 07/10/23 07:43
Lab Results
07/08/23 08:25
07/10/23 06:34
Calcium 8.8 mg/dl (8.4-10.2) 07/10/23 06:34
Magnesium 1.7 mg/dl (1.6-2.3) 07/10/23 06:34
Total Bilirubin 1.2 mg/dl (0.2-1.3) 07/07/23 03:59
AST 36 U/L (17-59) 07/07/23 03:59
ALT 41 U/L (0-50) 07/07/23 03:59
Alkaline Phosphatase 158 U/L (38-126) H 07/07/23 03:59
Total Protein 8.8 g/dl (6.3-8.2) H 07/07/23 03:59
Albumin 5.2 g/dl (3.5-5.0) H 07/07/23 03:59
Physical Exam
-
Gen: NAD
Abd: soft, NT/ND, non-peritoneal, prior incisions well healed
[2023-07-10] MEDS: DULCOLAX 5 MG PO (10:07)
[2023-07-10] MEDS: MIRALAX 17 GRAMS PO (10:07)
--- NOTE | 2023-07-10 10:20 | CM ---
Chart reviewed and updated notes from surgery, plan is for patient to return to [facility] when stable.
Plan; Patient to return to [facility] when stable.
[2023-07-10 11:34] VITALS: BP 121/78
[2023-07-10 12:14] LABS: Glucose - Point of Care 281 mg/dl (70-99)
--- NOTE | 2023-07-10 12:16 | W.PN.HOSP.TC ---
Today's Communication/Plan
-
dc
basal-bolus regimen
bowel regimen
Assessment / Plan
Assessment / Plan
Gen-AAOx3, NAD
HEENT-NC, AT, anicteric, clear oral mm,
Neck-supple
CV-reg, no M, +S1/S2
Lungs-clear B/L
Abd-soft, nondistended non tender, no guarding
Ext-no edema
Musculoskeletal-no cyanosis, clubbing
Skin-warm and dry
Neuro-grossly non-focal
Psych-calm, cooperative
Small bowel obstruction -improving overall. AXR with improvement. Diet advanced to LR.
DM1 with hyperglycemia -glucose improving. Hemoglobin A1c 11.3%. He uses 25 units of 70/30 insulin twice daily, regular insulin sliding scale. Doubt compliance given his drug abuse history and recent incarceration. No evidence of DKA.
Currently on glargine insulin 8 units twice daily and low resistance NovoLog scale in the hospital. POC elevated and diet started so expect POC to be elevated. Start premeal aspart 3u.
GABY -due to volume depletion. Renal function improved with IV fluids.
Hyperkalemia -resolved.
Diabetic peripheral neuropathy
Polysubstance abuse history
GERD/peptic ulcer disease
Recent dental extraction -stop further IV antibiotics. Observe.
Full code
More than 30 minutes spent in discharge including
Final examination of the patient
Summarizing hospital stay
Instructions for continuing care to all relevant caregivers
Preparation of discharge records, prescriptions, and referral forms
Total time spent (in minutes): 45
Anticipated Discharge: Today
Subjective/Interval History
-
Date of Service: July 10, 2023
Denies abdominal pain
States he is hungry and wants to eat.
Objective Data
-
Labs:
Laboratory Results
07/10/23
06:34
Sodium 137
Potassium 4.0
Chloride 104
Carbon Dioxide 25
BUN 9
Creatinine 0.7
Glucose 175 H
Calcium 8.8
Vital Signs:
Vital Signs
Temp Pulse Resp BP Pulse Ox
97.5 F 76 12 125/68 98
07/10/23 07:43 07/10/23 07:43 07/10/23 07:43 07/10/23 07:43 07/10/23 07:43
I&O
07/09/23 07/10/23 07/11/23
06:59 06:59 06:59
Intake Total 1740 / 1740 620 / 620
Output Total 5050 / 5050
Balance -3310 / -3310 620 / 620
[2023-07-10] MEDS: NOVOLOG FLEXPEN-LOW RESISTANCE 3 UNITS SC (12:24)
--- NOTE | 2023-07-10 13:56 | W.DCSUMMARY ---
Discharge Summary
Discharge Data
Date of Admission: 07/07/23
Date of Discharge: 07/10/23
-
Pending Results: No
Hospital Course
47-year-old male past medical history of diabetes, diabetic neuropathy, polysubstance abuse, GERD, recent dental extraction was presented with abdominal pain and discomfort. Patient was found to have small bowel obstruction. NG tube was placed.
Patient was eval by general surgery. Patient underwent abdominal imaging Interval decrease in small bowel distention since 07/07/2023 with moderate residual distention remaining. Moderate diffuse small bowel wall thickening and intramural edema
throughout both jejunal and ileal small bowel loops. Diagnostic possibilities are (1) small bowel wall edema secondary to a RESOLVING MECHANICAL SMALL BOWEL OBSTRUCTION. Subsequently afterwards abdominal x-ray Improved as compared with prior with
decreased small bowel dilation as above. Patient was started on liquid diet. IV fluid was continued. Patient was started on Lantus basal bolus regimen. Patient diet was finally advanced to regular diet as he was able to tolerate liquids without
any difficulty. Patient was tolerating without any difficulty and no nausea vomiting abdominal pain after eating low residue diet. Patient with mildly elevated creatinine which seemed secondary dehydration upon admission. Patient creatinine down
trended and returned to normal with IV fluid resuscitation. Patient be discharged back to [facility].
Discharge Plan
-
Patient Disposition: Custodial
Discharge Diagnosis/Procedures: Small bowel obstruction
Diabetes mellitus uncontrolled
Acute renal failure
Hyperkalemia
Condition: Fair
Diet: Low Residue and Diabetic, Carb Controlled
Activity: As tolerated
Driving Restrictions: No driving
Referrals:
[facility] [Family Provider] -
Prescriptions:
New
insulin aspart U-100 100 unit/mL (3 mL) Insulin Pen
3 unit SC AC 30 Days Qty: 2.7 0RF
Insulin Glargine Lantus [Lantus] 8 UNITS
Subcutaneous Insulin Syringe [Syringe-Insulin] 0 UNIT
As Directed mls/hr SC BID@0800,2200
Ordered By: Bong Nolasco MD
Last Taken: 07/10/23 08:54 0.08 mls
Continued
quetiapine [Seroquel] 25 mg Tablet
25 mg PO DAILY
clonazepam 0.5 mg Tablet
0.5 mg PO BID
ibuprofen 400 mg Tablet
400 mg PO TID
quetiapine [Seroquel] 50 mg Tablet
50 mg PO HS PRN (Reason: Sleep)
bisacodyl 5 mg Tablet
10 mg PO BIDPRN PRN (Reason: constipation)
Changed
polyethylene glycol 3350 [Miralax] 17 gram Powder In Packet
17 g PO DAILY Qty: 0 0RF
docusate sodium 100 mg Capsule
100 mg PO BID Qty: 0 0RF
Discontinued
insulin NPH and regular human 100 unit/mL (70-30) Suspension
20 unit SC BID
Patient Comments:
07/07/2023, Novolin 70/30 per [facility] paperwork.
amoxicillin 500 mg Capsule
500 mg PO BID
Patient Comments:
07/07/2023, start date: 07/06/2023; end date: 07/13/2023.
diphenhydramine HCl 25 mg Tablet
25 mg PO DAILY
Discharge Orders:
Discharge Patient (As Directed); Ordered 07/10/23
Ordered By: Bong Nolasco
Discharge Date and Time
Print Language: MAURITIAN
== END 2023-07-10 15:14 | DRG 389 ==
LOC: 4 WEST ACU 06:57
PROVIDERS: Nurse Practitioner Gerontology; ADMITTING PHYSICIAN Hospitalist; ATTENDING PHYSICIAN Hospitalist; CONSULT PHYSICIAN Surgery; EMERGENCY PHYSICIAN Emergency Medicine
DX: K56.609 Unspecified intestinal obstruction, unspecified as to partial versus complete obstruction (principal); E87.20 Acidosis, unspecified; N17.9 Acute kidney failure, unspecified; E87.5 Hyperkalemia; E83.52 Hypercalcemia; E86.0 Dehydration; F17.200 Nicotine dependence, unspecified, uncomplicated; E10.42 Type 1 diabetes mellitus with diabetic polyneuropathy; F19.11 Other psychoactive substance abuse, in remission; Z79.4 Long term (current) use of insulin
CPT/HCPCS: 74018; 74177; 80048; 80053; 82947; 82962; 83036; 83605; 83690; 83735; 84443; 85025; 85027; 87070; 96361; 96374; 96375; 96376; 99291; Q9967

== ENCOUNTER 2024-04-18 06:21 | Observation (INO) | payer OTHER, SELFPAY ==
[2024-04-18] VITALS (20 sets, daily range): BP systolic 111–175; BP diastolic 65–109; BMI 18.6
[2024-04-18 01:36] LABS: Glucose - Point of Care 488 mg/dl (70-99)
[2024-04-18 02:01] LABS: Venous Blood Gas B.E. -0.3 mmol/L (-4 to +4); Venous Blood Gas HCO3 26.7 mmol/L (22-27); Venous Blood Gas O2 Sat % 72.3 %; Venous Blood Gas pCO2 53 mmHg (35-48); Venous Blood Gas pH 7.31 (7.32-7.43); Venous Blood Gas pO2 43 mmHg (30-50)
[2024-04-18 02:02] LABS: % Basophils 0.6 % (0-2); % Eosinophils 1.7 % (0-6); % Immature Granulocytes 0.2 % (0-0.5); % Lymphocytes 24.7 % (20.5-51.1); % Monocytes 4.9 % (1.7-9.3); % Neutrophils 67.9 % (42.2-75.2); Absolute Eosinophils 0.1 10^3/uL (0-0.7); Absolute Lymphocytes 1.3 10^3/uL (1.2-3.4); Absolute Monocytes 0.3 10^3/uL (0.1-0.6); Absolute Neutrophils 3.6 10^3/uL (1.4-6.5); Hematocrit 38.8 % (39.0-52.0); Hemoglobin 13.1 g/dL (13.0-18.0); Mean Corp Hgb Conc. 33.8 g/dL (33.0-37.0); Mean Corpuscular Hgb 27.5 pg (27.0-31.0); Mean Corpuscular Volume 81.5 fL (80.0-94.0); Mean Platelet Volume 10.2 fL (7.4-10.4); Nucleated Red Blood Cells % 0 % (-); Platelet Count 335 10^3/uL (130-400); Red Blood Cell Count 4.76 10^6/uL (4.70-6.10); White Blood Cell Count 5.3 10^3/uL (4.8-10.8)
[2024-04-18] MEDS: NSS 1000 IV ×3 (02:04→09:04)
[2024-04-18 02:29] LABS: B.E. -0.1 mmol/L; HCO3 25.4 mmol/L (21-28); O2 Saturation % 95.5 % (94-98); PCO2 44 mmHg (35-48); PO2 95 mmHg (83-108); pH 7.37 (7.35-7.45)
[2024-04-18 02:32] LABS: Blood Urea Nitrogen 21 mg/dl (9-20); Calcium 9.3 mg/dl (8.4-10.2); Carbon Dioxide 25 mmol/L (22-30); Chloride 102 mmol/L (98-107); Estimated Creatinine Clearance 95 ml/min; Glucose 503 mg/dl (70-99); Sodium 135 mmol/L (135-145); eGFR > 60.00
[2024-04-18 03:27] LABS: ALT (SGPT) 22 U/L (0-50); AST (SGOT) 19 U/L (17-59); Albumin 4.2 g/dl (3.5-5.0); Alkaline Phosphatase 108 U/L (38-126); Blood Urea Nitrogen 19 mg/dl (9-20); Calcium 9.4 mg/dl (8.4-10.2); Carbon Dioxide 23 mmol/L (22-30); Chloride 104 mmol/L (98-107); Estimated Creatinine Clearance 108 ml/min; Glucose 456 mg/dl (70-99); Potassium 4.2 mmol/L (3.5-5.1); Sodium 136 mmol/L (135-145); Total Bilirubin 0.7 mg/dl (0.2-1.3); Total Protein 6.8 g/dl (6.3-8.2); eGFR > 60.00
[2024-04-18] MEDS: NOVOLIN R 6 UNITS IV (03:47)
[2024-04-18 04:22] LABS: Urine Albumin 1+ (Neg - Trace); Urine Bilirubin Negative (Negative); Urine Character Clear (Clear); Urine Color Yellow; Urine Glucose 4+ (Negative); Urine Ketone Negative (Negative); Urine Leukocyte Negative (Negative); Urine Nitrite Negative (Negative); Urine Occult Blood Negative (Negative); Urine Urobilinogen Negative (Neg - 1+)
[2024-04-18 04:50] LABS: Acetaminophen < 10 ug/ml (10-30); Salicylate < 1.0 mg/dl (2.0-20.0)
--- NOTE | 2024-04-18 04:54 | HPS.HSE ---
Family Physician
-
Family Physician: Facility [facility]
Chief Complaint
-
Hyperglycemia
History of Present Illness
This is a 48-year-old with past medical history significant for diabetes, hypertension who [facility] was found to be hyperglycemic.
Patient reports past medical history also significant for history of hypertension but not currently on BP medications, history of small bowel obstruction, reports history of her recent bowel resection in November 2023 at. Reports that his last use
of insulin was 3 days ago as he has not had any insulin since incarceration [facility]. [facility] today and on intake his blood glucose was found to be elevated. He reports polyuria
and polydipsia. He denies any fevers or chills. Denies any nausea or vomiting. Denies any shortness of breath or chest pain. He reports concern about a left second toe redness.
In the emergency department he was afebrile, satting 99% on room air, blood pressure 150/90 with a pulse of 71. CBC was unremarkable. He had blood glucose of 500 on initial testing. Electrolytes were normal with a bicarb of 23, BUN of 19 and
creatinine of 0.7. Sodium was 136 potassium 4.2. CBC was unremarkable. LFTs were all normal. ABG showed 7.37/40/20 5.4. Beta-hydroxybutyrate was slightly elevated at 0.4. UA is clear with glucosuria and trace albuminuria, no ketonuria.
Salicylates and acetaminophen levels were negative. CT of the head shows no acute intracranial process.
Medical History
Past Medical History
Past Medical History: Reports HTN and IDDM
Past Surgical History: Reports Bowel Resection (November 2023 at hospital in [place])
Social History
Tobacco: Former Smoker
Alcohol: None
Drug: Marijuana
Living: With Family
Family History
Family History: Not pertinent
Allergies / Home Medications
Allergies reflects when Allergies were last updated in [facility].
Home Medications with original date entered in [facility]
Allergy/Medication List:
Allergies
Allergy/AdvReac Type Severity Reaction Status Date / Time
No Known Allergies Allergy Verified 04/18/24 01:48
Home Medications
bisacodyl 5 mg tablet 10 mg PO BIDPRN PRN constipation 07/07/23
clonazepam 0.5 mg tablet 0.5 mg PO BID Mental Health/Anxiety 07/07/23
ibuprofen 400 mg tablet 400 mg PO TID Pain 07/07/23
quetiapine 25 mg tablet (Seroquel) 25 mg PO DAILY Mental Health/Anxiety 07/07/23
quetiapine 50 mg tablet (Seroquel) 50 mg PO HS PRN Sleep 07/07/23
Insulin Glargine Lantus [Lantus] 20 units As Directed mls/hr SC Daily
docusate sodium 100 mg capsule 100 mg PO BID constipation #0 caps 07/10/23
insulin aspart U-100 100 unit/mL (3 mL) subcutaneous pen 3 unit (0.03 mL) SC AC 30 days #2.7 mL 07/10/23
polyethylene glycol 3350 17 gram oral powder packet (Miralax) 17 g PO DAILY constipation #0 ea 07/10/23
Review of Systems
-
History Source: Patient
Constitutional: Reports No Symptoms
EENT: Reports No Symptoms
Respiratory: Reports No Symptoms
Cardiac: Reports No Symptoms
Abdomen/GI: Reports No Symptoms
: Reports No Symptoms
Musculoskeletal: Reports No Symptoms
Skin: Reports No Symptoms
Neurological: Reports No Symptoms
Endocrine: Reports Polyuria and Polydipsia
Hematologic/Lymphatic: Reports No Symptoms
Psych: Reports No Symptoms
Physical Exam
Vital Signs
Vital Signs
Temp Pulse Resp BP Pulse Ox
98.3 F 78 13 150/94 99
04/18/24 04:00 04/18/24 04:00 04/18/24 04:00 04/18/24 04:00 04/18/24 04:00
Physical Exam
General: No Apparent Distress
HEENT: NormoCephalic, Anicteric, Atraumatic and PERRLA; No Moist mucous membranes
Respiratory: Clear
Cardiac: S1/S2 and Regular Rhythm
Breast: Deferred by me
GI: Soft, Non Tender, Non Distended and Normal Bowel Sounds
Rectal: Deferred by Provider
Genito-urinary: Deferred by me
Musculoskeletal: No Clubbing, No Cyanosis and No Edema
Skin: Warm and Other (superficial ulceration on the left 2nd toe. )
Neuro: AO x 3 and Nonfocal/grossly intact
Hematologic/Lymphatic: No Lymphadenopathy
Psych: Calm
Laboratory Results
-
04/18/24 01:55
Laboratory Results
pH 7.37 (7.35-7.45) 04/18/24 02:17
pCO2 44 mmHg (35-48) 04/18/24 02:17
pO2 95 mmHg (83-108) 04/18/24 02:17
HCO3 25.4 mmol/L (21-28) 04/18/24 02:17
Total Bilirubin 0.7 mg/dl (0.2-1.3) 04/18/24 02:56
AST 19 U/L (17-59) 04/18/24 02:56
ALT 22 U/L (0-50) 04/18/24 02:56
Alkaline Phosphatase 108 U/L (38-126) 04/18/24 02:56
Data Reviewed
-
CT Scan: Report Reviewed by me
Lab Data: Labs Reviewed by me
Old Records: Reviewed
Impression/Plan
-
IMPRESSION:
This Is a 48-year-old with history of insulin-dependent diabetes, bowel obstruction status post recent's bowel resection at a hospital in [place] November 2023 presents from [facility] with intake hyperglycemia, after being
transferred there from [facility]. Reports that he has not used his insulin for the last 3 days due to incarceration. He states that he uses Lantus 20 units in the mornings/daytime and Premeal standing insulin. Mild polyuria and
polydipsia. He has a glucose of 500, no significant anion gap, slight elevation of beta hydroxybutyrate but negative ketones. Patient with hyperglycemia and possibly mild HHS but no DKA. Endorses cannabis and denies any other intoxication.
Negative serum tox screen.
PLAN:
1. Hyperglycemia w/o DKA
- admit to med/surg observation
- s/p 2 L NS in ED
- s/p 6 units of regular insulin
- continue iv fluids with NS at 125 ml/hr
- start lantus 10 units this am
- premeal insulin with moderate sliding scale
- A1c pending
- patient's utox pending but serum tox is negative.
- if glucose level improves can go home today on a regimen
2. HTN - reports not on any bp meds
- start norvasc 5 daily for now
3. Bowel surgery - well healed wound, denies constipation
- continue bowel regimen
4. Anxiety
- seroquel 25 hs prn sleep
- clonazepam 0.5 bid prn anxiety
DVT PPX - lovenox sq
Code status - Full Code
[2024-04-18 05:03] LABS: Glucose - Point of Care 280 mg/dl (70-99)
--- NOTE | 2024-04-18 05:14 | ED.GENMED ---
History of Present Illness
General
Chief Complaint: Blood Sugar Problem
Source: patient, ambulance crew and police ([facility])
Exam Limitations: clinical condition
Time Seen by Provider: 04/18/24 01:38
Nursing documentation reviewed up to this point in time: agreed with
History of Present Illness
History of Present Illness:
Pleasant 48-year-old male presents to the emergency department with altered mental status. He is a known diabetic and states he has not gotten his insulin in 3 days. Patient was found to be hyperglycemic and [facility]. Denies fever or
chills. History is limited.
Patient's past medical history significant for insulin-dependent diabetic, hypertension.
Past History
Past History
ED Past Medical History: IDDM
ED Past Surgical History: Bowel resection
Social History
Tobacco: Smoker
Alcohol: Occasional
Drug: Marijuana
Employment: Employed
Review of Systems
Review of Systems
Allergies reviewed?: Yes
All Other Systems: ROS reviewed and negative except as documented in HPI and ROS
Constitutional: Reports no symptoms
EENT: Reports no symptoms
Respiratory: Reports no symptoms
Cardiac: Reports no symptoms
ABD/GI: Reports no symptoms
: Reports no symptoms
Musculoskeletal: Reports no symptoms
Skin: Reports no symptoms
Neurological: Reports no symptoms
Endocrine: Reports no symptoms
Hematologic/Lymphatic: Reports no symptoms
Psychiatric: Reports no symptoms
Phy Exam
General Physical Exam
General Presentation: well appearing and no apparent distress
General Skin: warm and dry
General Habitus: normal
General Mental: alert
General Hydration: appears well hydrated
ENT Exam
ENT Exam: EOMI, pharynx normal, neck supple and normocephalic
Eye Exam
Eye Exam: PERRL, cornea clear and conjunctiva normal
Cardiovascular Exam
Cardiovascular Exam: regular rate/rhythm, no edema, no murmur and normal peripheral pulses
Pulmonary Exam
Pulmonary Exam: lungs clear, no respiratory distress, no rales, no crackles, no rhonchi, no stridor, no wheezing and no cough
Gastrointestinal Exam
Gastrointestinal Exam: normal bowel sounds, non tender, soft, no organomegaly, no pulsatile mass and non distended
Neurological Exam
Neurological Exam: alert, oriented x3, no motor deficits and speech normal
Musculoskeletal Exam
Musculoskeletal Exam: full ROM and no edema
Skin Exam
Skin Exam: normal color, warm/dry, no rash, no petechia and other (Multiple tattoos)
Psychiatric Exam
Psychiatric Exam: normal mood/affect
Course
Orders/Labs/Results
Orders:
Orders
04/18/24 01:38
Bedside Glucose- Treatment Q1H
IV Insert/Care/Rem.- Treatment PRN
0.9% Sodium Chloride 1000 ml [Nss] 1,000 ml IV BOLUS
0.9% Sodium Chloride 1000 ml [Nss] 1,000 ml IV BOLUS
04/18/24 01:55
B-Hydroxybutyrate Urgent
Basic Metabolic Panel Urgent
Comment: NO K
Complete Blood Count/With Diff Urgent
Glycohemoglobin (HgbA1c) Urgent
Venous Blood Gas Urgent
%Oxygen/Room Air: 98
04/18/24 02:17
Arterial Blood Gas Urgent
%Oxygen/Room Air: ra
04/18/24 02:56
Acetaminophen Urgent
Comprehensive Metabolic Panel Urgent
Salicylate Urgent
04/18/24 03:40
Insulin Human Regular [Novolin R] 6 units IV NOW STA
04/18/24 04:05
Fentanyl, Urine Urgent
Urinalysis Urgent
Date Specimen was Collected: 04/18/24
Time Specimen was Collected: 03:58
Urine Drug Abuse Screen Urgent
Date Specimen was Collected: 04/18/24
Time Specimen was Collected: 03:58
Urine Microscopic Urgent
Date Specimen was Collected: 04/18/24
Time Specimen was Collected: 03:58
04/18/24 04:14
CT Head W/o Iv Contrast Urgent
Comment:
Reason For Exam: confusion
04/18/24 05:14
Admit/Transfer Patient As Directed
Co-Sign Provider:
Level of Care: Observation services
Assign to:: Medical/Surgical
Physician / Group: hospitalist
Diagnosis: hyperglycemia
PRN Pain Medication Management As Directed
May give lesser potent ordered pain med per pt: Yes
preference::
Protocol:: Medication orders for pain may be administered in a
manner that supports deferring to patient preference
when the pt is:
- Requesting an ordered lesser potent pain medication.
Least to most potent pain medications are defined
as: acetaminophen < NSAID < tramadol < opioids
(morphine, oxycodone, hydromorphone).
- Requesting a lesser dose of the same medication IF
ORDERED.
- Requesting a less intrusive route of administration
if both routes are prescribed by the provider (PO <
IV).
04/18/24 05:15
Code Status As Directed
Resuscitation Status: Full Code
04/18/24 05:59
Basic Metabolic Panel Q2H
04/18/24 Breakfast
1800 calorie (15 carb) Diabetic
At Your Request: Full Participation
04/18/24 07:06
0.9% Sodium Chloride 1000 ml [Nss] 1,000 ml IV 125 mls/hr
Acetaminophen [Tylenol] 650 mg PO Q4HPRN PRN
Clonazepam [Klonopin] 0.5 mg PO BID PRN
Ondansetron Injectable [Zofran] 4 mg IV Q6HPRN PRN
04/18/24 07:06
Activity As Directed
Activity Level: As Tolerated
Bedside Glucose Monitoring As Directed
Frequency: AC&HS
Vital Signs As Directed
Frequency: Per unit guidelines
DX Deep Vein Thrombosis Video Routine
04/18/24 07:15
Bisacodyl [Dulcolax] 10 mg PO BIDPRN PRN
04/18/24 07:16
Quetiapine Fumarate [Seroquel] 50 mg PO HS PRN
04/18/24 07:30
Insulin Aspart Corrective Mod [Novolog Flexpen-Moderate Resistance] See Protocol SC AC
Insulin Aspart Pen [Novolog Flexpen] 3 units SC AC
04/18/24 08:00
Docusate Sodium [Colace] 100 mg PO BID
Insulin Glargine Lantus [Lantus] 10 units Subcutaneous Insulin Syringe [Syringe-Insulin] 0 unit SC DAILY
Polyethylene Glycol Powder [Miralax] 17 grams PO DAILY
04/18/24 18:00
Enoxaparin Sodium [Lovenox] 40 mg SC QPM
Abnormal Lab Results
04/18/24 04/18/24 04/18/24
01:35 01:55 02:56
Hct 38.8 L %
(39.0-52.0)
VBG pH 7.31 L
(7.32-7.43)
VBG pCO2 53 H mmHg
(35-48)
BUN 21 H mg/dl
(9-20)
Glucose 503 H* mg/dl 456 H* mg/dl
(70-99) (70-99)
Hemoglobin A1c 11.4 H %
(4.0-5.6)
Urine Bacteria
Urine Glucose
Urine Albumin
Salicylates < 1.0 L mg/dl
(2.0-20.0)
Acetaminophen < 10 L ug/ml
(10-30)
Ur Amphetamines Screen
U Methamphetamines Scrn
B-Hydroxybutyrate 0.40 H mmol/L
(0.02-0.27)
POC Glucose 488 H* mg/dl
(70-99)
04/18/24 04/18/24 04/18/24
04:05 05:01 05:59
Hct
VBG pH
VBG pCO2
BUN
Glucose 273 H mg/dl
(70-99)
Hemoglobin A1c
Urine Bacteria Few A
(Negative)
Urine Glucose 4+ A
(Negative)
Urine Albumin 1+ A
(Neg - Trace)
Salicylates
Acetaminophen
Ur Amphetamines Screen Positive H
(Negative)
U Methamphetamines Scrn Positive H
(Negative)
B-Hydroxybutyrate
POC Glucose 280 H mg/dl
(70-99)
04/18/24 01:55
04/18/24 05:59
Vital Signs
Initial and Last Documented VS:
Initial Vital Signs
Temp Pulse Resp BP Pulse Ox
98.1 F 89 14 160/109 98
04/18/24 01:35 04/18/24 01:35 04/18/24 01:35 04/18/24 01:35 04/18/24 01:35
Last Documented Vital Signs
Temp Pulse Resp BP Pulse Ox
98.3 F 75 25 144/101 98
04/18/24 04:00 04/18/24 12:45 04/18/24 12:45 04/18/24 12:30 04/18/24 12:30
*Radiology
Radiology exam reviewed: radiology read reviewed (CT of the head is negative)
*Critical Care Note
Total Time (30-74mins, 75-104mins- exclusive of procedures): Not Applicable
ED Attending Note
-
Portions of this chart may have been created with voice recognition software.� Occasional wrong word or��sound alike� substitutions may have occurred due to the inherent limitations of voice recognition software.
Discharge Plan
Departure
Patient Disposition: Admit
Date of Disposition: 04/18/24
Time of Disposition: 05:17
Admit to: IMU
Presentation/result/management discussed w/ accepting MD/DO: Hospitalist
Discharge Problem:
Acute hyperglycemia
Interventions
Interventions:
*Risk Screen - Suicide Last Done: 04/18/24 01:35
*General Assessment Last Done: 04/18/24 01:35
*Neglect/Abuse Screening Last Done: 04/18/24 01:35
ED- Fall Risk Assessment Last Done: 04/18/24 01:35
*ED COVID-19 Vaccine History Last Done: 04/18/24 01:35
*Nursing Disposition Last Done: 04/18/24 13:15
ED- Neurological Assessment Last Done: 04/18/24 01:52
Discharge Date and Time
Discharge Date/Time: 04/18/24 13:15
[2024-04-18 05:23] LABS: Urine Amorphous Seen; Urine Bacteria Few (Negative); Urine Red Blood Cell 0-2 /HPF (0-2); Urine Squamous Cell 0-2 /LPF (Few); Urine White Cell 0-2 /HPF (0-5)
[2024-04-18 05:28] LABS: Amphetamines Positive (Negative); Barbiturates Negative (Negative); Benzodiazepines Negative (Negative); Buprenorphine Negative (Negative); Cocaine Negative (Negative); Marijuana Negative (Negative); Methadone Negative (Negative); Methamphetamines Positive (Negative); Opiates Negative (Negative); Phencyclidine Negative (Negative); Tricyclic Antidepressants Negative (Negative)
[2024-04-18 05:37] LABS: Fentanyl, Urine Negative (Negative)
[2024-04-18 06:53] LABS: Blood Urea Nitrogen 17 mg/dl (9-20); Calcium 9.4 mg/dl (8.4-10.2); Carbon Dioxide 24 mmol/L (22-30); Chloride 105 mmol/L (98-107); Estimated Creatinine Clearance 108 ml/min; Glucose 273 mg/dl (70-99); Potassium 4.1 mmol/L (3.5-5.1); Sodium 138 mmol/L (135-145); eGFR > 60.00
[2024-04-18] MEDS: MIRALAX 17 GRAMS PO (07:48)
[2024-04-18] MEDS: COLACE 100 MG PO (07:48)
--- NOTE | 2024-04-18 08:40 | EDRN ---
Pharmacy called to send short acting insulin. Long acting insulin was already sent.
--- NOTE | 2024-04-18 08:52 | PHANOTE ---
Med Rec Note:
Spoke with nurse at [facility], pt receives accu-checks but no medications.
[2024-04-18] MEDS: LANTUS 0.1 UNITS SC (08:53)
[2024-04-18 08:54] LABS: Glucose - Point of Care 222 mg/dl (70-99)
[2024-04-18] MEDS: NOVOLOG FLEXPEN 3 UNITS SC ×2 (09:39→13:10)
[2024-04-18] MEDS: NOVOLOG FLEXPEN-MODERATE RESISTANCE 3 UNITS SC (09:41)
--- NOTE | 2024-04-18 09:49 | EDRN ---
Pt administered a boxed lunch at this time and a diet chrystal eliza.
[2024-04-18 09:50] LABS: Glycohemoglobin (HgbA1c) 11.4 % (4.0-5.6)
--- NOTE | 2024-04-18 10:07 | CM ---
CM reviewed medical records. Patient is from [facility]. Plan to return on discharge.
PLAN: Return to [facility].
--- NOTE | 2024-04-18 11:52 | W.DCSUMMARY ---
Discharge Summary
Discharge Data
Date of Admission: 04/18/24
Date of Discharge: 04/18/24
-
Pending Results: No
Hospital Course
Discharge diagnosis:
Acute hyperglycemia without diabetic ketoacidosis
Type 1 diabetes
Essential hypertension
Anxiety
Hospital course:
48-year-old male with a past medical history of type 1 diabetes, hypertension, and anxiety who presents from [facility] for acute hyperglycemia. Patient is usually on Lantus 20 units daily and Premeal standing insulin. He has not used his insulin for
the last 3 days due to incarceration. He had a blood sugar of 503 upon admission. Laboratory workup was negative for DKA. Patient was treated with IV fluids, insulin. His blood sugar improved to 127. He is medically stable for discharge.
Recommend that he takes Lantus 15 units daily at [facility]. He needs to follow-up with their physician as soon as possible.
Disposition: [facility]
Discharge planning: Required 41 minutes
Discharge Plan
-
Patient Disposition: Other
Discharge Diagnosis/Procedures: Type 1 diabetes with hyperglycemia
Condition: Good
Diet: Diabetic, Carb Controlled
Activity: As tolerated
Driving Restrictions: As prior to admission
Activity Restrictions/Additional Instructions:
It is very important that he takes his insulin as directed.
Referrals:
[facility] [Family Provider] -
Prescriptions:
New
insulin glargine [Lantus Solostar U-100 Insulin] 100 unit/mL (3 mL) insulin pen
15 unit SC DAILY Qty: 15 0RF
insulin aspart U-100 100 unit/mL (3 mL) insulin pen
1 sliding scale dose SC AC Qty: 0 0RF
Discharge Orders:
Discharge Patient (As Directed); Ordered 04/18/24
Ordered By: Ruslan Francois
Discharge Date and Time
Discharge Date/Time: 04/18/24 13:15
Print Language: MONGOLIAN
--- NOTE | 2024-04-18 12:40 | EDRN ---
As pt is still at input status for shelter. It was decided to check accucheck, cover w/ insulin as ordered and feed pt prior to his leaving.
--- NOTE | 2024-04-18 13:05 | EDRN ---
Pt fed lunch tray at this time. (No box lunches available in the department).
[2024-04-18 13:09] LABS: Glucose - Point of Care 127 mg/dl (70-99)
[2024-04-18] MEDS: NOVOLOG FLEXPEN-MODERATE RESISTANCE SC (13:10)
--- NOTE | 2024-04-18 13:53 | EDRN ---
Report called to Sheila Tyson RN at [facility] at this time. Insulin dosing reviewed extensively at this time.
== END 2024-04-18 13:15 ==
LOC: ED 06:21
PROVIDERS: ADMITTING PHYSICIAN Internal Medicine; ATTENDING PHYSICIAN Family Medicine; EMERGENCY PHYSICIAN Student in an Organized Health Care Education/Training Program
DX: E10.65 Type 1 diabetes mellitus with hyperglycemia (principal); I10 Essential (primary) hypertension; F41.9 Anxiety disorder, unspecified; R41.0 Disorientation, unspecified; R81 Glycosuria; F17.200 Nicotine dependence, unspecified, uncomplicated; Z87.19 Personal history of other diseases of the digestive system; Z90.49 Acquired absence of other specified parts of digestive tract; Z79.1 Long term (current) use of non-steroidal anti-inflammatories (NSAID); Z79.899 Other long term (current) drug therapy; Z79.4 Long term (current) use of insulin
CPT/HCPCS: 70450; 80048; 80053; 80143; 80179; 80306; 80307; 81003; 81015; 82010; 82805; 82962; 83036; 85025; 96361; 96374; 99284; G0378

== ENCOUNTER 2024-04-30 03:51 | Inpatient (IN) | payer OTHER, SELFPAY ==
[2024-04-29 22:47] VITALS: BP 135/79
[2024-04-29 22:49] VITALS: BMI 23.8
[2024-04-29 23:08] LABS: % Basophils 0.4 % (0-2); % Eosinophils 3.6 % (0-6); % Immature Granulocytes 0.3 % (0-0.5); % Lymphocytes 33.2 % (20.5-51.1); % Monocytes 6.8 % (1.7-9.3); % Neutrophils 55.7 % (42.2-75.2); Absolute Eosinophils 0.3 10^3/uL (0-0.7); Absolute Lymphocytes 2.3 10^3/uL (1.2-3.4); Absolute Monocytes 0.5 10^3/uL (0.1-0.6); Absolute Neutrophils 3.9 10^3/uL (1.4-6.5); Hematocrit 28.6 % (39.0-52.0); Hemoglobin 9.6 g/dL (13.0-18.0); Mean Corp Hgb Conc. 33.6 g/dL (33.0-37.0); Mean Corpuscular Hgb 28.4 pg (27.0-31.0); Mean Corpuscular Volume 84.6 fL (80.0-94.0); Mean Platelet Volume 10.1 fL (7.4-10.4); Nucleated Red Blood Cells % 0 % (-); Platelet Count 226 10^3/uL (130-400); Red Blood Cell Count 3.38 10^6/uL (4.70-6.10); Red Cell Dist. Width 14.7 % (11.5-14.5)
[2024-04-29 23:27] LABS: ALT (SGPT) 19 U/L (0-50); AST (SGOT) 30 U/L (17-59); Albumin 3.3 g/dl (3.5-5.0); Alkaline Phosphatase 56 U/L (38-126); Blood Urea Nitrogen 12 mg/dl (9-20); Calcium 7.1 mg/dl (8.4-10.2); Carbon Dioxide 18 mmol/L (22-30); Chloride 113 mmol/L (98-107); Estimated Creatinine Clearance 105 ml/min; Glucose 75 mg/dl (70-99); Potassium 3.9 mmol/L (3.5-5.1); Sodium 140 mmol/L (135-145); Total Bilirubin 0.3 mg/dl (0.2-1.3); Total Protein 5.6 g/dl (6.3-8.2); eGFR > 60.00
[2024-04-29] MEDS: ROXICODONE 5 MG PO (23:28)
[2024-04-29 23:34] LABS: NT-proBNP 754 pg/ml; Troponin I < 0.012 ng/ml
--- NOTE | 2024-04-29 23:52 | ED.GENMED ---
History of Present Illness
General
Chief Complaint: Swelling
Time Seen by Provider: 04/29/24 22:50
History of Present Illness
History of Present Illness:
48-year-old male with history of insulin-dependent diabetes and hypertension presents to the emergency department for evaluation of severe lower extremity and scrotal swelling building up over the past 2 weeks. Patient was seen in this emergency
department prior to the onset of symptoms for hyperglycemia and at that time had a recorded weight of 60 kg, today he has a recorded weight of 77.5 kg. He has no prior history of hepatic disease or heart failure. Prior history of alcohol use
however denies any use within the past several years. Reports severe scrotal pain, he reportedly had an ultrasound at the [facility] today and was started on ciprofloxacin empirically.
Past History
Past History
ED Past Medical History: IDDM
ED Past Surgical History: Bowel resection
Social History
Tobacco: Smoker
Alcohol: Occasional
Drug: Marijuana
Employment: Employed
Review of Systems
Review of Systems
Allergies reviewed?: Yes
All Other Systems: ROS reviewed and negative except as documented in HPI and ROS
Phy Exam
Physical Exam
Physical Exam:
GEN: Well appearing, NAD, WDWN
HEENT: Oral mucosa moist, no scleral icterus
Cardiac: Regular rate and rhythm, no murmurs
Lung: No respiratory distress, no tachypnea, lungs clear to auscultation bilaterally
: Severe scrotal edema
MSK: Massive pitting edema of the entire lower legs bilaterally extending to the proximal thighs
Skin: Good color, no pallor or jaundice, no rashes
Neuro: AO x3, moves all extremities freely
Psych: Calm, cooperative
Scores
Heart Failure Risk
Heart Failure Risk Score: Not Applicable
Course
Orders/Labs/Results
Orders:
Orders
04/29/24 22:58
Venous Doppler Lwr Ext Bilat [US Perip Venous LOWER Ext Abdon] Urgent
Comment:
Reason For Exam: BLE edema
04/29/24 23:03
Complete Blood Count/With Diff Urgent
Comprehensive Metabolic Panel Urgent
NT-proBNP Urgent
TSH Reflex To Free T4 Urgent
Troponin I Urgent
04/29/24 23:06
Oxycodone [Roxicodone] 5 mg PO NOW STA
04/29/24 23:42
CR Chest - 2 Views Urgent
Comment:
Reason For Exam: sob
04/30/24 00:09
Furosemide [Lasix] 40 mg IV NOW STA
04/30/24 00:27
CT Abd/Pel (IV only)-DH only Urgent
Comment:
Reason For Exam: BLE/scrotal edema
Abnormal Lab Results
04/29/24
23:03
RBC 3.38 L 10^6/uL
(4.70-6.10)
Hgb 9.6 L g/dL
(13.0-18.0)
Hct 28.6 L %
(39.0-52.0)
RDW 14.7 H %
(11.5-14.5)
Chloride 113 H mmol/L
(98-107)
Carbon Dioxide 18 L mmol/L
(22-30)
Calcium 7.1 L mg/dl
(8.4-10.2)
Total Protein 5.6 L g/dl
(6.3-8.2)
Albumin 3.3 L g/dl
(3.5-5.0)
04/29/24 23:03
04/29/24 23:03
Vital Signs
Initial and Last Documented VS:
Initial Vital Signs
Temp Pulse Resp Pulse Ox
98.0 F 89 18 100
04/29/24 22:40 04/29/24 22:40 04/29/24 22:40 04/29/24 22:40
Last Documented Vital Signs
Temp Pulse Resp BP Pulse Ox
98.0 F 92 16 137/82 99
04/29/24 22:40 04/29/24 23:30 04/29/24 23:30 04/30/24 00:16 04/30/24 00:30
MDM/Problems Addressed
MDM/Problems Addressed:
48-year-old male presents from [facility] for evaluation of severe anasarca developing over the past 2 weeks. Cause is unclear, does not appear to have any cardiogenic symptoms at this time to suggest acute CHF, does have history of
hepatitis C but no evidence for cirrhosis or portal venous hypertension on imaging. No evidence for IVC clot. Given massive 17 kg weight gain in 2 weeks will admit for diuresis and further workup
*Critical Care Note
Total Time (30-74mins, 75-104mins- exclusive of procedures): Not Applicable
Update Note
Update Note:
Suspect Hgb is low secondary to hemodilution in the setting of massive volume overload
ED Attending Note
-
Portions of this chart may have been created with voice recognition software.� Occasional wrong word or��sound alike� substitutions may have occurred due to the inherent limitations of voice recognition software.
Discharge Plan
Departure
Patient Disposition: Admit
Date of Disposition: 04/30/24
Time of Disposition: 01:52
Admit to: Med/Surg
Presentation/result/management discussed w/ accepting MD/DO: Hospitalist
Discharge Problem:
Anasarca
Prescriptions:
No Action
loperamide 2 mg Capsule
2 mg PO BIDPRN PRN (Reason: diarrhea)
clonazepam 1 mg Tablet
1 mg PO BID
ciprofloxacin HCl 500 mg Tablet
500 mg PO BID
pantoprazole 40 mg Tablet,Delayed Release (Dr/Ec)
40 mg PO BID
lisinopril 10 mg Tablet
10 mg PO DAILY
ibuprofen 400 mg Tablet
400 mg PO BID
omeprazole 20 mg Capsule,Delayed Release(Dr/Ec)
20 mg PO DAILY
Cetaphil Moisturizing Lotion
1 applic TOPICAL BIDPRN PRN (Reason: dry skin)
insulin glargine [Lantus Solostar U-100 Insulin] 100 unit/mL (3 mL) insulin pen
21 unit SC QPM
Referrals:
[facility],Fac[facility] [Family Provider] -
Interventions
Interventions:
*General Assessment Last Done: 04/29/24 22:40
*Neglect/Abuse Screening Last Done: 04/29/24 22:49
*ED- Fall Risk Assessment Last Done: 04/29/24 22:49
*ED COVID-19 Vaccine History Last Done: 04/29/24 22:49
ED- Cardiac Assessment Last Done: 04/29/24 23:20
ED- Pulmonary Assessment Last Done: 04/29/24 23:20
ED-Skin Assessment Last Done: 04/29/24 23:20
Discharge Date and Time
Print Language: FILIPINO
[2024-04-30] VITALS (7 sets, daily range): BP systolic 113–144; BP diastolic 65–82; BMI 22.6
[2024-04-30 00:22] LABS: TSH Reflex To Free T4 1.87 uIU/ml (0.47-4.68)
[2024-04-30] MEDS: LASIX 40 MG IV ×3 (00:54→15:56)
[2024-04-30 02:45] LABS: Glucose - Point of Care 33 mg/dl (70-99)
[2024-04-30] MEDS: D10W 125 IV (02:51)
[2024-04-30 03:17] LABS: Glucose - Point of Care 73 mg/dl (70-99)
--- NOTE | 2024-04-30 03:20 | HPS.HSE ---
Family Physician
-
Family Physician: Facility [facility]
Chief Complaint
-
Edema
History of Present Illness
Patient is a 48y M with PMH significant for DM-I who presents to ED complaining of LE edema and scrotal pain. Patient states that his symptoms have been gradually progressive over the past 2 weeks or so. He was hospitalized here overnight 04/17
- 04/18 for uncontrolled DM-I and discharged on Lantus. He states that he has noted increased edema since that time. He complains today of scrotal pain as well. He denies any issues with urination. He denies any chest pain or dyspnea. No GI
complaints. He denies any history of heart disease, CHF, etc.
Patient has history of substance abuse. Most recently has used methamphetamines - typically intranasal. Last use was about 2 months ago.
He does have prior history of IVDA - last in 2015.
Medical History
Past Medical History
Past Medical History: Reports Other
Additional Past Medical History:
DM-I with Polyneuropathy
GERD
Ischemic Bowel
Cardiac Arrest
? Thyroid Disease
Past Surgical History: Reports Other
Additional Past Surgical History:
Ex Lap / Small Bowel Resection
Left Great Toe Amputation
Social History
Tobacco: Smoker (Daily vape use +/- cigarettes. 30 pack years.)
Alcohol: None
Drug: Former User (History of polysubstance abuse including IVDA. Last IV use was 2015.)
Living: Residential
Family History
Family History: Not pertinent
Allergies / Home Medications
Allergies reflects when Allergies were last updated in [facility].
Home Medications with original date entered in [facility]
Allergy/Medication List:
Allergies
Allergy/AdvReac Type Severity Reaction Status Date / Time
No Known Allergies Allergy Verified 04/29/24 22:50
Home Medications
ciprofloxacin HCl 500 mg tablet 500 mg PO BID 04/29/24
clonazepam 1 mg tablet 1 mg PO BID 04/29/24
ibuprofen 400 mg tablet 400 mg PO BID 04/29/24
insulin glargine 100 unit/mL (3 mL) subcutaneous pen (Lantus Solostar U-100 Insulin) 21 unit SC QPM 04/29/24
lisinopril 10 mg tablet 10 mg PO DAILY 04/29/24
loperamide 2 mg capsule 2 mg PO BIDPRN PRN diarrhea 04/29/24
omeprazole 20 mg capsule,delayed release 20 mg PO DAILY 04/29/24
pantoprazole 40 mg tablet,delayed release 40 mg PO BID 04/29/24
vit X-joogzxup-migjeedrhdx lotion (Cetaphil Moisturizing lotion) 1 applic topical BIDPRN PRN dry skin 04/29/24
Review of Systems
-
History Source: Patient
A 12 point ROS was completed and negative except as noted: Yes
Constitutional: Reports Weight Gain and Fatigue; Denies Fever or Chills
Respiratory: Denies Cough or Trouble Breathing
Cardiac: Denies Chest Pain or Palpitations
Abdomen/GI: Denies Abdominal Pain, Nausea, Vomiting or Diarrhea
: Reports Other (Scrotal edema / pain.); Denies Dysuria, Frequency or Flank Pain
Musculoskeletal: Reports Edema
Neurological: Denies Dizzy or Headache
Psych: Denies Depression or Anxiety
Physical Exam
Vital Signs
Vital Signs
Temp Pulse Resp BP Pulse Ox
98.0 F 86 13 124/76 99
04/29/24 22:40 04/30/24 02:00 04/30/24 02:00 04/30/24 02:00 04/30/24 00:30
Physical Exam
General: Other (48y M in mild distress due to pain.)
HEENT: Moist mucous membranes and PERRLA
Respiratory: Clear; No Wheezes, Rales or Rhonchi
Cardiac: S1/S2 and Regular Rhythm; No Murmur
GI: Soft, Non Tender, Non Distended and Normal Bowel Sounds
Genito-urinary: Other (Scrotal edema without signifciant erythema / induration / fluctuance or evident abscess.)
Musculoskeletal: No Clubbing, No Cyanosis and Other (3+ pitting edema b/l LEs to the groin / scrotum.)
Neuro: AO x 3
Laboratory Results
-
04/29/24 23:03
04/29/24 23:
Laboratory Results
Total Bilirubin 0.3 mg/dl (0.2-1.3) 04/29/24:
AST 30 U/L (17-59) 04/29/24:
ALT 19 U/L (0-50) 04/29/24:
Alkaline Phosphatase 56 U/L (38-126) 04/29/24 23:
Troponin I < 0.012 ng/ml 04/29/24 23:03
Impression/Plan
-
A/P: Patient is a 48y M with PMH significant for DM-I and history of mesenteric ischemia who presents to ED complaining of scrotal pain and swelling.
Anasarca
- Admit for further evaluation and treatment.
- Patient with significant weight gain, LE edema and scrotal edema that has occurred in the interim since his last visit here on 04/18.
- No leukocytosis, fevers, induration or other evidence of cellulitis, etc.
- CT scan done in the ED with no collection, abscess, etc.
- LFTs are unremarkable. TSH is normal.
- Gross renal function is normal. Check prot:creat ratio for evidence of nephrotic syndrome.
- Check Echo.
- Continue IV Lasix for now and follow for improvement in edema / anasarca.
- Potassium supplementation while on diuretic given borderline low K.
DM-I with Hypoglycemia
- Glucose by fingerstick in the ED down to 33.
- Had PM Lantus at alf but no dinner / food since then.
- Continue supplemental dextrose infusion for now.
- Follow fingerstick glucose.
- SSI as needed. Decrease Lantus back to prior 15 unit dose.
- Update A1C.
Normocytic Anemia
- Hgb = 9.6 compared to normal baseline 13 or so.
- ? dilutional component given significant anasarca?
- Check iron studies, B12, etc.
- Follow H&H for changes.
- Heme test stools / monitor for any evidence of gross blood loss.
Mood Disorder
Polysubstance Abuse
- Stable. Continue current clonazepam.
- Monitor for any mood changes, etc.
DVT Prophylaxis: Lovenox
Code Status: Full
[2024-04-30] MEDS: TORADOL 15 MG IV (03:55)
[2024-04-30] MEDS: D10W IV (04:43)
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
[2024-04-30] MEDS: D10W 1000 IV (05:47)
[2024-04-30 06:19] LABS: Protein/creatinine Ratio 0.9; Urine Protein 9 mg/dl
[2024-04-30 06:20] LABS: Hematocrit 27.9 % (39.0-52.0); Hemoglobin 9.6 g/dL (13.0-18.0); Mean Corp Hgb Conc. 34.4 g/dL (33.0-37.0); Mean Corpuscular Hgb 28.9 pg (27.0-31.0); Mean Platelet Volume 10.5 fL (7.4-10.4); Platelet Count 229 10^3/uL (130-400); Red Blood Cell Count 3.32 10^6/uL (4.70-6.10); Red Cell Dist. Width 14.6 % (11.5-14.5); Reticulocyte Count 1.9 % (0.4-2.8); White Blood Cell Count 8.4 10^3/uL (4.8-10.8)
[2024-04-30 06:38] LABS: Iron 55 ug/dl (49-181)
[2024-04-30 06:47] LABS: Percent Saturation 19 % (20-50); Total Iron Binding Capacity 285 ug/dl (261-462)
[2024-04-30 07:17] LABS: ALT (SGPT) 17 U/L (0-50); AST (SGOT) 24 U/L (17-59); Albumin 3.1 g/dl (3.5-5.0); Alkaline Phosphatase 63 U/L (38-126); Blood Urea Nitrogen 12 mg/dl (9-20); Calcium 6.9 mg/dl (8.4-10.2); Carbon Dioxide 25 mmol/L (22-30); Chloride 105 mmol/L (98-107); Direct Bilirubin 0.1 mg/dl (0.0-0.4); Estimated Creatinine Clearance 115 ml/min; Glucose 52 mg/dl (70-99); Potassium 3.8 mmol/L (3.5-5.1); Sodium 139 mmol/L (135-145); Total Bilirubin 0.5 mg/dl (0.2-1.3); Total Protein 5.2 g/dl (6.3-8.2); eGFR > 60.00
[2024-04-30 07:47] LABS: Ferritin 12.8 ng/ml (17.9-464.0)
[2024-04-30] MEDS: KLOR-CON 20 MEQ PO ×2 (07:49→21:22)
[2024-04-30] MEDS: KLONOPIN 1 MG PO ×2 (07:50→21:22)
[2024-04-30 07:55] LABS: Glucose - Point of Care 70 mg/dl (70-99)
[2024-04-30 08:19] LABS: Folate > 20.0 ng/ml (2.76-20); Vitamin B12 190 pg/ml (239-931)
[2024-04-30] MEDS: NOVOLOG FLEXPEN-LOW RESISTANCE SC ×2 (08:33→10:30)
--- NOTE | 2024-04-30 09:34 | W.PN.HOSP.TC ---
Today's Communication/Plan
-
Echocardiogram
Gentle diuresis monitoring creatinine.
Replete vitamin B12, iron, calcium
Reduce Lantus dose monitoring for recurrent hypoglycemia
Assessment / Plan
Assessment / Plan
Impression:
Patient is a 48y M with PMH significant for DM-I and history of mesenteric ischemia who presents to ED complaining of scrotal pain and swelling.
Anasarca.
Other conditions:
Type 1 diabetes
Chronic normocytic anemia.
History of small bowel resection
History of pylorotomy as a child
Mood disorder/polysubstance abuse
Plan:
Anasarca.
Patient reports significant weight gain and presenting with lower extremity and scrotal edema acute since last admission in the hospital on 04/18.
Denies any chest pain or shortness of breath.
Afebrile with normal white count.
CT scan of the abdomen and pelvis showed no evidence of ascites, intra-abdominal/pelvic collection.
LFTs within normal limits.
TSH normal.
Normal creatinine.
Protein/creatinine ratio 0.9 is against glomerular disease including nephrotic syndrome.
Has no evidence of biventricular dysfunction/heart failure by presentation
Noted with mildly elevated pro CHF BNP with pending echocardiogram.
In addition patient does have a history of small bowel resection with unknown details of extents/length. Current presentation along with iron deficiency anemia, B12 deficiency and hypocalcemia could be related to malabsorption.
Continue gentle IV diuresis with potassium supplementation.
Iron deficiency anemia, chronic with no evidence of acute blood loss.
Patient reports no prior history of colonoscopy.
Need to follow-up with gastroenterology as outpatient
Will start IV iron repletion
B12 repletion per
Hypocalcemia: Corrected to albumin calcium 7.1. Check ionized calcium. Start repletion
Diabetes type 1.
Recent hemoglobin A1c above 11.
Presented with hypoglycemia.
Continue basal bolus protocol with serial Accu-Cheks.
Initiated on carbohydrate diet.
Reduce Lantus dose to 15 units and monitor for recurrent hypoglycemia
Mood Disorder
Polysubstance Abuse
- Stable. Continue current clonazepam.
- Monitor for any mood changes, etc.
DVT Prophylaxis: Lovenox
Code Status: Full
Anticipated Discharge: 24 - 48 hours
Subjective/Interval History
-
Date of Service: April 30, 2024
Objective Data
-
Labs:
Laboratory Results
04/29/24 04/30/24
23:03 06:01
WBC 7.0 8.4
Hgb 9.6 L 9.6 L
Hct 28.6 L 27.9 L
Plt Count 226 229
Sodium 140 139
Potassium 3.9 3.8
Chloride 113 H 105
Carbon Dioxide 18 L 25
BUN 12 12
Creatinine 0.9 0.8
Glucose 75 52 L*
Calcium 7.1 L 6.9 L*
Total Bilirubin 0.3 0.5
AST 30 24
ALT 19 17
Alkaline Phosphatase 56 63
Vital Signs:
Vital Signs
Temp Pulse Resp BP Pulse Ox
98.2 F 84 18 116/65 97
04/30/24 07:23 04/30/24 07:23 04/30/24 07:23 04/30/24 07:23 04/30/24 07:23
I&O
04/29/24 04/30/24 05/01/24
06:59 06:59 06:59
Output Total 5230 / 5230
Balance -5230 / -5230
Physical Exam
-
General: Well Developed, Well Nourished and No Apparent Distress
HEENT: Normocephalic, Atraumatic and Moist Mucous Membranes
Respiratory: Clear to Auscultation; Negative Wheezes, Rales or Rhonchi
Cardiac: Regular Rhythm and S1/S2
GI: Soft, Nontender and Nondistended
Musculoskeletal: No Clubbing, No Cyanosis, No Edema and Other (left foot is surgically wrapped)
Neuro: Awake, Alert and Oriented
[2024-04-30] MEDS: CALCIUM GLUCONATE 100 IV (10:30)
[2024-04-30] MEDS: ZESTRIL 10 MG PO (10:30)
[2024-04-30] MEDS: CYANOCOBALAMIN 1000 MCG IM (10:35)
[2024-04-30 11:54] LABS: Glucose - Point of Care 229 mg/dl (70-99)
[2024-04-30 12:22] LABS: Ionized Calcium 0.92 mMOL/L (1.15-1.33)
--- NOTE | 2024-04-30 13:12 | PTCARENOTE ---
Patient refusing MRSA swab. Covering provider David Jensen is aware. No new orders at this time.
[2024-04-30] MEDS: FERRLECIT 110 MG IV (13:41)
--- NOTE | 2024-04-30 13:54 | CM ---
Patient seen at bedside with guards. Patient is from [facility]. CM called to [facility] [phone]. Per nurse patient is a brittle diabetic and does not usually need any dme for ambulation. CM will update physician, plan for discharge is return to [facility].
CM will continue to follow for discharge planning needs.
Plan; return to senior care with guards when medically appropriate
[2024-04-30 16:48] LABS: Glucose - Point of Care 207 mg/dl (70-99)
[2024-04-30] MEDS: NOVOLOG FLEXPEN-LOW RESISTANCE 2 UNITS SC (17:00)
[2024-04-30] MEDS: LOVENOX SC (17:01)
[2024-04-30] MEDS: PROTONIX 40 MG PO (21:23)
--- NOTE | 2024-04-30 21:43 | PTCARENOTE ---
Addendum entered by Valeria Samuels RN 05/01/24 01:28:
correction: [facility] not [facility]
Original Note:
Pt verbalizing displeasure with medical treatment. Asking RN 'what are you even doing for me? Did they figure out what's wrong yet? No doctor even cam back and saw me' Explained that a repeat Echo was ordered and he refused to go since dinner tray
was here. Pt argumentative stating 'I should go to a different hospital' Pt then elaborated he heard from parole office that he could be potentially released. He is requesting to return to detention. Refusing HS accucheck, verbalizing refusal of
all care. Nursing supervisory investigative specialist contacted, spoke w/RN at [facility] ([phone]). ZOILA [facility] contacted regarding pt's request to sign out AMA.
--- NOTE | 2024-04-30 22:10 | PTCARENOTE ---
Provider on floor w/AMA paperwork. Pt states 'I never said that, they said it'. Conversation was witnessed by guards and RN from [facility] via speakerphone. Public Utilities Sales Representative notified.
[2024-04-30] MEDS: LANTUS 0.15 UNITS SC (22:13)
[2024-04-30 22:15] LABS: Glucose - Point of Care 226 mg/dl (70-99)
--- NOTE | 2024-04-30 22:17 | PTCARENOTE ---
Pt started cursing at this RN when explaining plan of care stating 'you have a fucking attitude' Guards verbally correcting patient's behavior. Politely reminded patient that he has been uncooperative t/o stay, refusing to particpate in admission
process, refusing treatment, and rude to staff, now cursing. Pt then apologized for behaviors and states he will be more respectful.
[2024-05-01 05:31] VITALS: BMI 21.5
--- NOTE | 2024-05-01 05:33 | PTCARENOTE ---
RN requested that patient get on standing scale for daily weight. Started cursing 'fuck these people, fuck this, I wanna go back to [facility]' RN requested that he be more respectful with language. Pt then proceeded to get OOB and stand on scale
naked. Daily weight obtained and documented.
[2024-05-01 06:09] LABS: Ionized Calcium 0.85 mMOL/L (1.15-1.33)
[2024-05-01 07:05] LABS: Blood Urea Nitrogen 16 mg/dl (9-20); Calcium 6.9 mg/dl (8.4-10.2); Carbon Dioxide 28 mmol/L (22-30); Chloride 106 mmol/L (98-107); Estimated Creatinine Clearance 109 ml/min; Glucose 64 mg/dl (70-99); Potassium 3.9 mmol/L (3.5-5.1); Sodium 140 mmol/L (135-145); eGFR > 60.00
--- NOTE | 2024-05-01 07:44 | PTCARENOTE ---
Lab informed this RN of critical calcium lab value, result= 6.9. made aware, new order provided, see MAR.
[2024-05-01 07:57] LABS: Glucose - Point of Care 32 mg/dl (70-99)
[2024-05-01 08:00] LABS: Glucose - Point of Care 40 mg/dl (70-99)
[2024-05-01 08:15] VITALS: BP 124/79
[2024-05-01 08:20] LABS: Glucose - Point of Care 36 mg/dl (70-99)
[2024-05-01] MEDS: NOVOLOG FLEXPEN-LOW RESISTANCE SC (08:46)
[2024-05-01 08:49] LABS: Glucose - Point of Care 33 mg/dl (70-99)
--- NOTE | 2024-05-01 08:55 | PTCARENOTE ---
Glucose decreased, result= 40, rechecked after juice, result=36, rechecked after juice, and final result=33. Pt c/o drowsiness. MD made aware, new order provided.
[2024-05-01] MEDS: DEXTROSE 50% SYRINGE 25 GRAMS IV (09:07)
[2024-05-01] MEDS: KLONOPIN 1 MG PO ×2 (09:09→21:38)
[2024-05-01] MEDS: ZESTRIL 10 MG PO (09:09)
[2024-05-01] MEDS: PROTONIX 40 MG PO ×2 (09:09→21:37)
[2024-05-01] MEDS: KLOR-CON 20 MEQ PO ×2 (09:12→21:39)
[2024-05-01] MEDS: CYANOCOBALAMIN 1000 MCG IM (09:12)
[2024-05-01] MEDS: LASIX 40 MG IV (09:12)
--- NOTE | 2024-05-01 09:47 | PTCARENOTE ---
Pt refused to have glucose rechecked. Informed this RN he wants to sign out AMA. Pt increasingly agitated and angry. made aware.
[2024-05-01 10:04] LABS: Glucose - Point of Care 140 mg/dl (70-99)
[2024-05-01] MEDS: CALCIUM GLUCONATE 100 IV (10:42)
[2024-05-01 11:54] LABS: Glucose - Point of Care 227 mg/dl (70-99)
--- NOTE | 2024-05-01 11:59 | PN.DE.MGMTRT ---
Insulin Management
- -
05/01/2024 Diabetes Management Consult
Patient admitted 04/29 with c/o lower extremity and scrotal swelling. PMH Thpe 1 diabetes, GERD, cardiac arrest substance abuse 2016 - IV drugs, more recent meth. Prior to admission was at [facility]. Patient states he was taking lantus 20 units @ hs
and 7 units AC with a SS; correctional facility indicates 21 units of lantus @ hs, no AC novolog. A1C is 11.4%, cr .8, eGFR > 60.
Patient is in bed with blanket over his head. Called his name several times, finally removed blanket and able to discuss prior diabetes care. Responds to questions with short one word answers. He is alert, oriented.
Patient has received 15 units lantus @ hs. Glucose fasting two consecutive mornings [address] Jensen has reduced HS lantus to 10 units. Pre meal glucose yesterday > 200. Will add 2 units novolog AC with low corrective insulin. If patient
does not eat meal please HOLD standing dose, 2 units novolog.
Patient initially stated he had a glucose monitor but later said he needed 'all new stuff and prescriptions for everything'.
Will follow
Discussed with nurse.
Diabetes History
- -
Type of Diabetes: 1
Pre-Admission Diabetes Regimen
05/01/24
05:53
Creatinine 0.8
Insulin Pump Settings
IP Diabetes Regimen
04/30/24 04/30/24 05/01/24
16:46 22:12 05:53
Glucose 64 L
POC Glucose 207 H 226 H
05/01/24 05/01/24 05/01/24
07:56 07:58 08:18
Glucose
POC Glucose 32 L* 40 L* 36 L*
05/01/24 05/01/24 05/01/24
08:48 10:02 11:52
Glucose
POC Glucose 33 L* 140 H 227 H
Meal type: Lunch
Meal type: Breakfast
Amount consumed: 100%
Amount consumed: 100%
Patient Education
[2024-05-01] MEDS: NOVOLOG FLEXPEN-LOW RESISTANCE 2 UNITS SC (12:44)
[2024-05-01] MEDS: FERRLECIT 110 MG IV (13:14)
--- NOTE | 2024-05-01 13:25 | CM ---
Patient from [facility], CM will update [facility] when patient medically appropriate for transition. CM will continue to follow for discharge planning needs.
Plan; return to [facility]
--- NOTE | 2024-05-01 14:41 | W.PN.HOSP.TC ---
Today's Communication/Plan
-
Adjust insulin dose.
Monitor for recurrent hypoglycemia.
IV iron, B12 repletion.
Replete calcium.
Check vitamin D metabolites
Assessment / Plan
Assessment / Plan
Impression:
Patient is a 48y M with PMH significant for DM-I and history of mesenteric ischemia who presents to ED complaining of scrotal pain and swelling.
Anasarca.
Other conditions:
Type 1 diabetes
Chronic normocytic anemia.
History of small bowel resection
History of pylorotomy as a child
Mood disorder/polysubstance abuse
Plan:
Anasarca.
Patient reports significant weight gain and presenting with lower extremity and scrotal edema acute since last admission in the hospital on 04/18.
Denies any chest pain or shortness of breath.
Afebrile with normal white count.
CT scan of the abdomen and pelvis showed no evidence of ascites, intra-abdominal/pelvic collection.
LFTs within normal limits.
TSH normal.
Normal creatinine.
Protein/creatinine ratio 0.9 is against glomerular disease including nephrotic syndrome.
Echocardiogram with preserved biventricular function
In addition patient does have a history of small bowel resection with unknown details of extents/length. Current presentation along with iron deficiency anemia, B12 deficiency and hypocalcemia could be related to malabsorption.
Edema improved with diuresis. Stop Lasix
Concern for malabsorption in the patient with prior history of small bowel resection, hypocalcemia, iron deficiency, vitamin B12 deficiency.
Differential diagnosis could be short gut syndrome after small bowel resection (that could explain brittle diabetes with fluctuating blood glucose), possibly pancreatic insufficiency, although reports no significant diarrhea.
Possibly bacterial overgrowth noted with low B12 and high folate level
IV iron
B12 repletion. MMA pending
Calcium repletion. Vitamin D metabolites pending
Consider GI consultation
Diabetes type 1.
With recurrent hypoglycemia
Recent hemoglobin A1c above 11.
Monitor oral intake
Reduce standing dose of Lantus to 10 units. Agree with AC insulin.
Continue basal bolus protocol with serial Accu-Cheks.
Initiated on carbohydrate diet.
Mood Disorder
Polysubstance Abuse
- Stable. Continue current clonazepam.
- Monitor for any mood changes, etc.
DVT Prophylaxis: Lovenox
Code Status: Full
Anticipated Discharge: 24 - 48 hours
Subjective/Interval History
-
Date of Service: May 01, 2024
Objective Data
-
Labs:
Laboratory Results
05/01/24
05:53
Sodium 140
Potassium 3.9
Chloride 106
Carbon Dioxide 28
BUN 16
Creatinine 0.8
Glucose 64 L
Calcium 6.9 L*
Vital Signs:
Vital Signs
Temp Pulse Resp BP Pulse Ox
97.9 F 81 16 124/79 93
05/01/24 08:15 05/01/24 09:12 05/01/24 08:15 05/01/24 09:12 05/01/24 08:15
I&O
04/30/24 05/01/24 05/02/24
06:59 06:59 06:59
Intake Total 1620 / 1620
Output Total 5230 / 5230 8050 / 8050
Balance -5230 / -5230 -6430 / -6430
Physical Exam
-
General: Well Developed, Well Nourished and No Apparent Distress
HEENT: Normocephalic, Atraumatic and Moist Mucous Membranes
Respiratory: Clear to Auscultation; Negative Wheezes, Rales or Rhonchi
Cardiac: Regular Rhythm and S1/S2
GI: Soft, Nontender and Nondistended
Musculoskeletal: No Clubbing, No Cyanosis, No Edema and Other (left foot is surgically wrapped)
Neuro: Awake, Alert and Oriented
[2024-05-01 16:04] LABS: Vitamin D, 25-OH*** < 12.8 ng/mL (30-80)
[2024-05-01 16:08] VITALS: BP 145/88
[2024-05-01 16:41] LABS: Glucose - Point of Care 295 mg/dl (70-99)
[2024-05-01] MEDS: NOVOLOG FLEXPEN-LOW RESISTANCE 3 UNITS SC (17:15)
[2024-05-01] MEDS: LOVENOX 40 MG SC (17:15)
[2024-05-01 21:40] LABS: Glucose - Point of Care 477 mg/dl (70-99)
[2024-05-01] MEDS: LANTUS 0.1 UNITS SC (21:40)
[2024-05-01 22:50] LABS: Glucose 489 mg/dl (70-99)
--- NOTE | 2024-05-01 22:51 | PTCARENOTE ---
POC glucose >400, stat glucose 489, CABLE SPLICER ASSISTANT notified
[2024-05-01] MEDS: NOVOLOG FLEXPEN 6 UNITS SC (23:09)
--- NOTE | 2024-05-01 23:19 | PTCARENOTE ---
6 units novolog given, will recheck BG at 0100 and 0300
[2024-05-01 23:30] VITALS: BP 114/75
[2024-05-02 01:11] LABS: Glucose - Point of Care 162 mg/dl (70-99)
[2024-05-02 03:01] LABS: Glucose - Point of Care 123 mg/dl (70-99)
[2024-05-02 05:47] LABS: Glucose - Point of Care 77 mg/dl (70-99)
[2024-05-02 07:35] VITALS: BP 123/76
--- NOTE | 2024-05-02 07:50 | PN.DE.MGMTRT ---
Insulin Management
- -
05/02/2024: Diabetes Management Follow Up
Patient admitted 04/29 with c/o lower extremity and scrotal swelling. PMH: T1DM, GERD, Cardiac arrest 2/2 substance abuse in 2016 - IV drugs, more recent meth. Prior to admission was at [facility]. Patient states he was taking Lantus 20 units @ hs and 7
units AC with a SS; correctional facility indicates 21 units of Lantus @ hs, no AC NovoLog. A1C is 11.4%, Cr 0.8, eGFR > 60.
Pt awake, alert, oriented, sitting up in bed, eating lunch, offers no complaints, able to discuss diabetes care plan.
05/01 Glucose trended up to 489 at HS last night, Nursing reports that pt is constantly asking for food and is eating more than his allotted calories.
Patient received 6 units of Aspart and 10 units Lantus @ HS. 3AM glucose down to 123 and FBG 77 this AM and further down to 63(V).
Will add AC NovoLog 4 units and continue HS Lantus 10 units with low corrective insulin.
Patient initially stated he had a glucose monitor but later said he needed 'all new stuff and prescriptions for everything'.
Will cont to follow and send rx for new glucose monitor- pt will lemon picker at pharmacy after release from correction facility.
Discussed with nurse.
Diabetes History
- -
Type of Diabetes: 1
Pre-Admission Diabetes Regimen
Insulin Pump Settings
IP Diabetes Regimen
05/01/24 05/01/24 05/01/24
07:56 07:58 08:18
Glucose
POC Glucose 32 L* 40 L* 36 L*
05/01/24 05/01/24 05/01/24
08:48 10:02 11:52
Glucose
POC Glucose 33 L* 140 H 227 H
05/01/24 05/01/24 05/01/24
16:40 21:37 22:23
Glucose 489 H*
POC Glucose 295 H 477 H*
05/02/24 05/02/24 05/02/24
01:10 02:59 05:46
Glucose
POC Glucose 162 H 123 H 77
Meal type: Breakfast
Amount consumed: 85%
Patient Education
[2024-05-02 08:19] LABS: % Basophils 0.4 % (0-2); % Eosinophils 2.9 % (0-6); % Immature Granulocytes 0.4 % (0-0.5); % Monocytes 7.7 % (1.7-9.3); % Neutrophils 52.6 % (42.2-75.2); Absolute Eosinophils 0.2 10^3/uL (0-0.7); Absolute Lymphocytes 1.9 10^3/uL (1.2-3.4); Absolute Monocytes 0.4 10^3/uL (0.1-0.6); Absolute Neutrophils 2.8 10^3/uL (1.4-6.5); Hematocrit 31.4 % (39.0-52.0); Hemoglobin 10.5 g/dL (13.0-18.0); Mean Corp Hgb Conc. 33.4 g/dL (33.0-37.0); Mean Corpuscular Hgb 28.1 pg (27.0-31.0); Mean Platelet Volume 9.9 fL (7.4-10.4); Nucleated Red Blood Cells % 0 % (-); Platelet Count 246 10^3/uL (130-400); Red Blood Cell Count 3.74 10^6/uL (4.70-6.10); Red Cell Dist. Width 14.3 % (11.5-14.5); White Blood Cell Count 5.2 10^3/uL (4.8-10.8)
[2024-05-02 08:55] LABS: Blood Urea Nitrogen 26 mg/dl (9-20); Calcium 7.9 mg/dl (8.4-10.2); Chloride 95 mmol/L (98-107); Estimated Creatinine Clearance 109 ml/min; Glucose 63 mg/dl (70-99); Potassium 4.3 mmol/L (3.5-5.1); Sodium 138 mmol/L (135-145); eGFR > 60.00
[2024-05-02 09:03] LABS: Carbon Dioxide 34 mmol/L (22-30)
[2024-05-02] MEDS: CYANOCOBALAMIN 1000 MCG IM (11:06)
[2024-05-02] MEDS: PROTONIX 40 MG PO ×2 (11:06→20:58)
[2024-05-02] MEDS: KLONOPIN 1 MG PO ×2 (11:06→20:57)
[2024-05-02] MEDS: ZESTRIL 10 MG PO (11:06)
[2024-05-02 11:14] LABS: Glucose - Point of Care 93 mg/dl (70-99)
[2024-05-02] MEDS: NOVOLOG FLEXPEN-LOW RESISTANCE SC ×3 (11:15→18:30)
[2024-05-02] MEDS: KLOR-CON 20 MEQ PO ×2 (11:15→20:59)
[2024-05-02] MEDS: NOVOLOG FLEXPEN 4 UNITS SC ×2 (11:16→18:29)
--- NOTE | 2024-05-02 14:52 | CON.GI ---
Addendum entered and electronically signed by Steven Villegas MD 05/02/24 18:55:
I saw and examined the patient.
The PA's note was reviewed and I agree with the note.
Comment:
48 year old male with h/o DM, diabetic neuropathy, polysubstance abuse, GERD, and multiple abdominal surgeries p/w edema and anasarca. Also found to have multiple electrolyte/micronutrient deficiencies.
Impression / Rec:
1. Anasarca, multiple deficiencies - concern for possible short gut syndrome. He has h/o multiple abdominal surgeries; ischemic bowel s/p SB resection 3 years ago at [facility], SBO in June with medical management, further SB resection 4
months ago at [facility]. SBFT showed rapid transit w/ contrast reaching colon in approximately 35 minutes. Will need to obtain and review his surgical history/operative report to determine if he indeed does have short gut. Replete
electrolytes. No plan for endo eval until his operative history/reports are reviewed.
Original Note:
Consultation
-
Date/Time Consultation Requested: 05/02/24 1330
Date/Time Consultation Performed: 05/02/24 1500
Requesting Provider: David Jensen MD
Performing Provider: ZOILA Pagan, Steven Villegas MD
Reason for Consultation: abnormal imaging eval for EGD
Medical History
Chief Complaint / HPI
Chief Complaint: dysphagia, diarrhea
History of Present Illness:
Pt is a 48yo presents with hx IDDM with admission in March with hyperglycemia, diabetic neuropathy with prior toe amp, prior cellulitis, prostatitis, polysubstance abuse, GERD, ischemic bowel- prior SB resection 3 years ago [facility]
[place] then SBO in June with medical management, further SB resection 4 months ago at [facility], pyloromyotomy as child , prior cardiac arrest, ? thyroid disease presents with scrotal pain and swelling with noted anasarca. In review of
labs noted with hbg 9-10 range with low iron sat and ferritin , labile FBS from 52- 489, albumin 3.3. Recent tox screen in Mar + for amphetamine and methamphetamines with last use in March. Pt completed UGI with SBFT today with noted Rapid
small bowel transit with contrast reaching the colon in approximately 35 minutes. Normal small bowel fold pattern and caliber.Thin, elongated filling defect in the distal third of the esophagus. Uncertain etiology. Recommend follow-up endoscopy and
CT noted Generalized anasarca with extensive scrotal edema/swelling. There is no discrete fluid collection. Moderate colonic stool burden. Asked to see for anasarca, concern for malnutrition and abnormal esophageal imaging.
In review with patient with recent SB resection 4 months ago he recall significant amount of SB resected. He was initially told would not survive. He states after admission went right to senior living and did not have follow up but developed
anasarca. He also admits to frequent diarrhea some all water and other loose stools. He also admits to dysphagia and was due to for OP EGD at [facility]. He denies dysphagia, GERD, nausea, vomiting, abdominal pain, constipation or rectal bleeding.
No hx colonoscopy in past.
Past Medical History
Past Medical History: GERD, IDDM and Other (ischemic bowel, prior cardiac arrest, ? thyroid disease , diabetic neuropathy, polysubstance abuse)
Past Surgical History: Other (exp lap, SB resection, toe amputation, pyloromyotomy as child )
Social History
Tobacco: Vaping
Alcohol: None
Drug: Marijuana and Other (meth use last end of March )
Personal: Other (girlfriend )
Living: [facility] (but due to discharge today from [facility] living )
Employment: Disabled
Family History
Family History: Other (no family hx GI issues )
Allergies / Home Medications
Allergy/AdvReac Type Severity Reaction Status Date / Time
No Known Allergies Allergy Verified 04/29/24 22:50
�Medication �Instructions �Recorded
ciprofloxacin HCl 500 mg tablet 500 mg PO BID Infection 04/29/24
clonazepam 1 mg tablet 1 mg PO BID anxiety 04/29/24
ibuprofen 400 mg tablet 400 mg PO BID Pain 04/29/24
insulin glargine 100 unit/mL (3 21 unit SC QPM Diabetes 04/29/24
mL) subcutaneous pen (Lantus
Solostar U-100 Insulin)
lisinopril 10 mg tablet 10 mg PO DAILY Blood Pressure 04/29/24
loperamide 2 mg capsule 2 mg PO BIDPRN PRN diarrhea 04/29/24
omeprazole 20 mg capsule,delayed 20 mg PO DAILY Gastrointestinal 04/29/24
release Issue
pantoprazole 40 mg tablet,delayed 40 mg PO BID Gastrointestinal Issue 04/29/24
release
vit M-hqqgcocv-vdarprzaesr lotion 1 applic topical BIDPRN PRN dry 04/29/24
(Cetaphil Moisturizing lotion) skin
Review of Systems
-
History Source: Patient
Constitutional: Reports Weight Loss (with surgery then gain with fluid)
EENT: Reports No Symptoms
Respiratory: Reports No Symptoms
Cardiac: Reports No Symptoms
Abdomen/GI: Reports Diarrhea
: Reports No Symptoms
Musculoskeletal: Reports No Symptoms
Skin: Reports No Symptoms
Neurological: Reports No Symptoms
Endocrine: Reports No Symptoms
Hematologic/Lymphatic: Reports No Symptoms
Vital Signs
Temp Pulse Resp BP Pulse Ox
97.8 F 73 17 123/76 98
05/02/24 07:35 05/02/24 07:35 05/02/24 07:35 05/02/24 07:35 05/02/24 07:35
Physical Exam
Exam
General: Well Developed, Well Nourished and No Apparent Distress
HEENT: Normocephalic and Anicteric
Respiratory: Clear
Cardiac: Regular Rhythm
GI: Soft, Non Distended and Other (mid abdominal incision intact and healed )
Musculoskeletal: No Clubbing and No Cyanosis
Skin: Warm and Dry
Neuro: Awake, Alert and AO x 3
Psych: Calm
Results
WBC 5.2 10^3/uL (4.8-10.8) 05/02/24 07:55
Hgb 10.5 g/dL (13.0-18.0) L 05/02/24 07:55
Hct 31.4 % (39.0-52.0) L 05/02/24 07:55
MCV 84.0 fL (80.0-94.0) 05/02/24 07:55
Plt Count 246 10^3/uL (130-400) 05/02/24 07:55
Absolute Neuts (auto) 2.8 10^3/uL (1.4-6.5) 05/02/24 07:55
Sodium 138 mmol/L (135-145) 05/02/24 07:55
Potassium 4.3 mmol/L (3.5-5.1) 05/02/24 07:55
Chloride 95 mmol/L (98-107) L 05/02/24 07:55
Carbon Dioxide 34 mmol/L (22-30) H 05/02/24 07:55
BUN 26 mg/dl (9-20) H 05/02/24 07:55
Creatinine 0.8 mg/dL (0.7-1.3) 05/02/24 07:55
Calcium 7.9 mg/dl (8.4-10.2) L 05/02/24 07:55
Total Bilirubin 0.5 mg/dl (0.2-1.3) 04/30/24 06:01
AST 24 U/L (17-59) 04/30/24 06:01
ALT 17 U/L (0-50) 04/30/24 06:01
Alkaline Phosphatase 63 U/L (38-126) 04/30/24 06:01
Diagnostic Image Results:
05/02/24 RF UGI-Double Cont W/sm Int
Rapid small bowel transit with contrast reaching the colon in approximately 35 minutes. Normal small bowel fold pattern and caliber.
Thin, elongated filling defect in the distal third of the esophagus. Uncertain etiology. Recommend follow-up endoscopy.
04/30/24 CT A/p with IV contrast only
Generalized anasarca with extensive scrotal edema/swelling. There is no discrete fluid collection.
CT Abd/pel W Iv And Oral Contr
1. Interval decrease in small bowel distention since 07/07/2023 with moderate residual distention remaining. Moderate diffuse small bowel wall thickening and intramural edema throughout both jejunal and ileal small bowel loops. Diagnostic
possibilities are (1) small bowel wall edema secondary to a RESOLVING MECHANICAL SMALL BOWEL OBSTRUCTION, (2) small bowel ischemia, (3) enteritis secondary to vasculitis/connective tissue disease, or (4) an infectious or inflammatory enteritis.
2. Small volume of abdominal and pelvic ascites.
3. Large amount of fecal material throughout most of the colon.
4. Mild diffuse intrahepatic biliary dilatation.
5. Mild hepatomegaly.
6. Nasogastric tube in place.
Moderate colonic stool burden.
Prior GI Procedures:
EGD: in past due repeat [facility]
Colonoscopy: none
Assessment / Plan
-
Pt is a 48yo presents with hx IDDM with admission in March with hyperglycemia, diabetic neuropathy with prior toe amp, prior cellulitis, prostatitis, polysubstance abuse, GERD, ischemic bowel- [facility]
[place] then SBO in June with medical management, further SB resection 4 months ago at [facility], pyloromyotomy as child , prior cardiac arrest, ? thyroid disease presents with scrotal pain and swelling with noted anasarca. In review of
labs noted with hbg 9-10 range with low iron sat and ferritin , labile FBS from 52- 489, albumin 3.3. Recent tox screen in Mar [place] for amphetamine and methamphetamines with last use in March. Pt completed UGI with SBFT today with noted Rapid
small bowel transit with contrast reaching the colon in approximately 35 minutes. Normal small bowel fold pattern and caliber.Thin, elongated filling defect in the distal third of the esophagus. Uncertain etiology. Recommend follow-up endoscopy and
CT noted Generalized anasarca with extensive scrotal edema/swelling. There is no discrete fluid collection. Moderate colonic stool burden. Asked to see for anasarca, concern for malnutrition and abnormal esophageal imaging.
-anasarca
-hx SB resection 3 years ago and further resection 4 months ago at [facility] for ischemic bowel
-dysphagia with hx pylorotomy as child
-UTI with filling defect distal third of esophagus
-IDDM with labile FBS
-hypocalemia
-anemia
-B12 deficiency
-vitamin D deficiency
other med problems:
- neuropathy prior toe amp
-cellulitis
-prostatitis
-polypsubstance abuse
-hx cellulitis
-? hx cardiac arrest
- ? thyroid disease
PLAN:
Etiology of anasarca and vitamin deficiency related to malabsorption from ? short gut vs other
will need surgical report from [facility] to confirm extent of resection completed
cont to correct electrolyte and current FBS
pt asking about TPN -- discussed would be very difficulty to do with labile FBS and need to confirm extent of bowel resection
reviewed with patient consider follow up at [facility] were surgery was completed
will review with Dr. Bakari PISANO and need for EGD with filling defect -- unclear if related to prior pylorotomy as child
cont diet as tolerated
pt is due for release from [facility] today
-
-
Thank you for consultation and allowing me to participate in the patient's care. Please call the instructional services librarian GI physician during the after hours with any questions or concerns.
[2024-05-02] MEDS: FERRLECIT 110 MG IV (15:26)
--- NOTE | 2024-05-02 15:32 | W.PN.HOSP.TC ---
Today's Communication/Plan
-
Monitor for recurrent hypoglycemia.
Liberalize diet and liftoff fluid restriction.
Ongoing workup for malabsorption.
GI consultation with consideration of endoscopy given ongoing dysphagia, distal esophageal filling defect
Assessment / Plan
Assessment / Plan
Impression:
Patient is a 48y M with PMH significant for DM-I and history of mesenteric ischemia who presents to ED complaining of scrotal pain and swelling.
Anasarca.
Ongoing dysphagia with solids
Reports chronic diarrhea
Other conditions:
Type 1 diabetes
Chronic normocytic anemia.
History of small bowel resection
History of pylorotomy as a child
Mood disorder/polysubstance abuse
Plan:
Anasarca.
Patient reports significant weight gain and presenting with lower extremity and scrotal edema acute since last admission in the hospital on 04/18.
Denies any chest pain or shortness of breath.
Afebrile with normal white count.
CT scan of the abdomen and pelvis showed no evidence of ascites, intra-abdominal/pelvic collection.
LFTs within normal limits.
TSH normal.
Normal creatinine.
Protein/creatinine ratio 0.9 is against glomerular disease including nephrotic syndrome.
Echocardiogram with preserved biventricular function
In addition patient does have a history of small bowel resection with unknown details of extents/length. Current presentation along with iron deficiency anemia, B12 deficiency and hypocalcemia could be related to malabsorption.
Edema improved with diuresis. Stop Lasix. Start fluid restriction
Concern for malabsorption in the patient with prior history of small bowel resection, hypocalcemia, iron deficiency, vitamin B12 deficiency.
Patient reports chronic diarrhea
Differential diagnosis could be short gut syndrome after small bowel resection (that could explain brittle diabetes with fluctuating blood glucose), possibly pancreatic insufficiency, although reports no significant diarrhea.
Possibly bacterial overgrowth noted with low B12 and high folate level
Small bowel follow-through with rapid small bowel passage
IV iron
B12 repletion. MMA pending
Calcium repletion. Vitamin D metabolites pending
Celiac panel pending
Patient with chronic dysphagia and prior history of esophageal stricture and what looks like food impaction required upper endoscopy at [facility]
Small bowel follow-through here with distal esophageal filling defect
Obtain medical records from [place]
Gastroenterology consult
Diabetes type 1.
With recurrent hypoglycemia
Recent hemoglobin A1c above 11.
Given recurrent hypoglycemia and malnutrition, will liberalize diet to regular.
Reduce standing dose of Lantus to 10 units. Agree with AC insulin.
Continue basal bolus protocol with serial Accu-Cheks.
Initiated on carbohydrate diet.
Mood Disorder
Polysubstance Abuse
- Stable. Continue current clonazepam.
- Monitor for any mood changes, etc.
DVT Prophylaxis: Lovenox
Code Status: Full
Anticipated Discharge: 24 - 48 hours
Subjective/Interval History
-
Date of Service: May 02, 2024
Objective Data
-
Labs:
Laboratory Results
05/02/24
07:55
WBC 5.2
Hgb 10.5 L
Hct 31.4 L
Plt Count 246
Sodium 138
Potassium 4.3
Chloride 95 L
Carbon Dioxide 34 H
BUN 26 H
Creatinine 0.8
Glucose 63 L
Calcium 7.9 L
Vital Signs:
Vital Signs
Temp Pulse Resp BP Pulse Ox
97.8 F 73 17 123/76 98
05/02/24 07:35 05/02/24 07:35 05/02/24 07:35 05/02/24 07:35 05/02/24 07:35
I&O
05/01/24 05/02/24 05/03/24
06:59 06:59 06:59
Intake Total 1620 / 1620 1497 / 1497
Output Total 8050 / 8050 4150 / 4150
Balance -6430 / -6430 -2653 / -2653
Physical Exam
-
General: Well Developed, Well Nourished and No Apparent Distress
HEENT: Normocephalic, Atraumatic and Moist Mucous Membranes
Respiratory: Clear to Auscultation; Negative Wheezes, Rales or Rhonchi
Cardiac: Regular Rhythm and S1/S2
GI: Soft, Nontender and Nondistended
Musculoskeletal: No Clubbing, No Cyanosis, No Edema and Other (left foot is surgically wrapped)
Neuro: Awake, Alert and Oriented
[2024-05-02 15:35] VITALS: BP 118/66
[2024-05-02 16:49] LABS: Glucose - Point of Care 520 mg/dl (70-99)
[2024-05-02 18:09] LABS: Glucose 600 mg/dl (70-99)
[2024-05-02] MEDS: 0.45%NACL 1000 IV (18:29)
[2024-05-02] MEDS: LOVENOX 40 MG SC (18:30)
[2024-05-02] MEDS: NOVOLOG FLEXPEN 6 UNITS SC ×2 (18:33→21:09)
[2024-05-02 19:47] LABS: Glucose - Point of Care 519 mg/dl (70-99)
[2024-05-02 20:49] LABS: Glucose 452 mg/dl (70-99)
[2024-05-02] MEDS: LANTUS 0.1 UNITS SC (21:12)
[2024-05-02 22:33] LABS: Venous Blood Gas B.E. 7.2 mmol/L (-4 to +4); Venous Blood Gas O2 Sat % 98.2 %; Venous Blood Gas pCO2 46 mmHg (35-48); Venous Blood Gas pH 7.45 (7.32-7.43); Venous Blood Gas pO2 144 mmHg (30-50)
[2024-05-02 22:47] LABS: Blood Urea Nitrogen 26 mg/dl (9-20); Calcium 7.7 mg/dl (8.4-10.2); Carbon Dioxide 30 mmol/L (22-30); Chloride 94 mmol/L (98-107); Estimated Creatinine Clearance 80 ml/min; Glucose 333 mg/dl (70-99); Potassium 4.4 mmol/L (3.5-5.1); Sodium 135 mmol/L (135-145); eGFR > 60.00
[2024-05-02 23:08] VITALS: BP 119/76
[2024-05-02 23:17] LABS: Glucose - Point of Care 233 mg/dl (70-99)
[2024-05-03] MEDS: 0.45%NACL 1000 IV ×3 (04:57→22:59)
[2024-05-03 06:00] VITALS: BMI 21.0
--- NOTE | 2024-05-03 07:24 | PTCARENOTE ---
Patient's blood sugar was 519 at 19:45. STAT venous glucose was 452. [employer] MANAGER Som Arias notified. See MAR. This RN gave insulin coverage. This RN rechecked patient's blood sugar 2 hours later. Blood sugar was 233. Will continue to monitor.
[2024-05-03 08:11] LABS: Glucose - Point of Care 322 mg/dl (70-99)
[2024-05-03 08:34] VITALS: BP 115/68
[2024-05-03] MEDS: NOVOLOG FLEXPEN-LOW RESISTANCE 4 UNITS SC (08:53)
[2024-05-03] MEDS: NOVOLOG FLEXPEN 6 UNITS SC ×3 (08:54→18:39)
[2024-05-03] MEDS: PROTONIX 40 MG PO ×2 (08:55→20:02)
[2024-05-03] MEDS: ZESTRIL 10 MG PO (08:55)
[2024-05-03] MEDS: KLONOPIN 1 MG PO ×2 (08:55→20:01)
[2024-05-03] MEDS: KLOR-CON 20 MEQ PO (08:55)
[2024-05-03] MEDS: CYANOCOBALAMIN 1000 MCG IM (08:56)
[2024-05-03] MEDS: NOVOLOG FLEXPEN SC (09:44)
--- NOTE | 2024-05-03 10:58 | W.PN.HOSP.TC ---
Today's Communication/Plan
-
continue IVF
continue insulin
unfortunately patient on regular diet, not agreeable to diabetic at this time
replete lytes
follow GI recs. OP report from [facility] is shared with GI.
Assessment / Plan
Assessment / Plan
Impression:
Patient is a 48y M with PMH significant for DM-I and history of mesenteric ischemia who presents to ED complaining of scrotal pain and swelling.
Anasarca.
Ongoing dysphagia with solids
Reports chronic diarrhea
Other conditions:
Type 1 diabetes
Chronic normocytic anemia.
History of small bowel resection
History of pylorotomy as a child
Mood disorder/polysubstance abuse
Plan:
Anasarca.
Patient reports significant weight gain and presenting with lower extremity and scrotal edema acute since last admission in the hospital on 04/18.
Denies any chest pain or shortness of breath.
Afebrile with normal white count.
CT scan of the abdomen and pelvis showed no evidence of ascites, intra-abdominal/pelvic collection.
LFTs within normal limits.
TSH normal.
Normal creatinine.
Protein/creatinine ratio 0.9 is against glomerular disease including nephrotic syndrome.
Echocardiogram with preserved biventricular function
In addition patient does have a history of small bowel resection '60 cm from ligaments of treitz down to terminal ileum were resected' per OP reports. Current presentation along with iron deficiency anemia, B12 deficiency and hypocalcemia could be
related to malabsorption.
Edema improved with diuresis. Stop Lasix. Start fluid restriction
Concern for malabsorption in the patient with prior history of small bowel resection, hypocalcemia, iron deficiency, vitamin B12 deficiency.
Patient reports chronic diarrhea
Differential diagnosis could be short gut syndrome after small bowel resection (that could explain brittle diabetes with fluctuating blood glucose), possibly pancreatic insufficiency, although reports no significant diarrhea.
Possibly bacterial overgrowth noted with low B12 and high folate level
Small bowel follow-through with rapid small bowel passage
IV iron
B12 repletion. MMA pending
Calcium repletion. Vitamin D metabolites pending
Celiac panel pending
GS following
Patient with chronic dysphagia and prior history of esophageal stricture and what looks like food impaction required upper endoscopy at [facility]
Small bowel follow-through here with distal esophageal filling defect
Obtain medical records from [place]
Gastroenterology consult
Diabetes type 1.
With recurrent hypoglycemia
Recent hemoglobin A1c above 11.
Given recurrent hypoglycemia and malnutrition, will liberalize diet to regular.
Reduce standing dose of Lantus to 10 units. Agree with AC insulin.
Continue basal bolus protocol with serial Accu-Cheks.
Initiated on carbohydrate diet.
Mood Disorder
Polysubstance Abuse
- Stable. Continue current clonazepam.
- Monitor for any mood changes, etc.
DVT Prophylaxis: Lovenox
Code Status: Full
Anticipated Discharge: > 48 hours
Subjective/Interval History
-
Date of Service: May 03, 2024
hyperglycemic last evening, insulin titrated, sugars lower currently
Objective Data
-
Labs:
Laboratory Results
05/03/24
08:41
WBC Pending
Hgb Pending
Hct Pending
Plt Count Pending
Sodium Pending
Potassium Pending
Chloride Pending
Carbon Dioxide Pending
BUN Pending
Creatinine Pending
Glucose Pending
Calcium Pending
Vital Signs:
Vital Signs
Temp Pulse Resp BP Pulse Ox
97.8 F 58 21 115/68 99
05/03/24 08:34 05/03/24 08:34 05/03/24 08:34 05/03/24 08:34 05/03/24 08:34
I&O
05/02/24 05/03/24 05/04/24
06:59 06:59 06:59
Intake Total 1497 / 1497 960 / 960
Output Total 4150 / 4150 3650 / 3650
Balance -2653 / -2653 -2690 / -2690
Physical Exam
-
General: No Apparent Distress
HEENT: Normocephalic and Atraumatic
Respiratory: Negative Wheezes
Cardiac: Regular Rhythm and S1/S2
GI: Soft
Genito-urinary: No Costovertebral Tender
Neuro: AO x 3
Psych: Calm
Data Reviewed
-
Total Time Spent with Patient (in minutes): 41
Labs: Labs Reviewed by me
[2024-05-03 12:22] LABS: Glucose - Point of Care 137 mg/dl (70-99)
[2024-05-03] MEDS: FERRLECIT 110 MG IV (13:13)
[2024-05-03] MEDS: NOVOLOG FLEXPEN-LOW RESISTANCE SC (13:14)
--- NOTE | 2024-05-03 13:14 | W.PN.GI.CBS2 ---
Today's Communication / Plan
-
PPI, loperamide, pets salesperson consult
Assessment / Plan
-
Pt is a 48yo presents with hx IDDM with admission in March with hyperglycemia, diabetic neuropathy with prior toe amp, prior cellulitis, prostatitis, polysubstance abuse, GERD, ischemic bowel- prior SB resection [address] [facility]
amrita then SBO in June with medical management, further SB resection 4 months ago at [facility], pyloromyotomy as child , prior cardiac arrest, ? thyroid disease presents with scrotal pain and swelling with noted anasarca. In review of
labs noted with hbg 9-10 range with low iron sat and ferritin , labile FBS from 52- 489, albumin 3.3. Recent tox screen in [place] + for amphetamine and methamphetamines with last use in March. Pt completed UGI with SBFT today with noted Rapid
small bowel transit with contrast reaching the colon in approximately 35 minutes. Normal small bowel fold pattern and caliber.Thin, elongated filling defect in the distal third of the esophagus. Uncertain etiology. Recommend follow-up endoscopy and
CT noted Generalized anasarca with extensive scrotal edema/swelling. There is no discrete fluid collection. Moderate colonic stool burden. Asked to see for anasarca, concern for malnutrition and abnormal esophageal imaging.
Pt's operative report from 11/2023 was reviewed. It reported pt's small bowel was non-viable from 60 cm from the ligament of Treitz all the way down to terminal ileum, and was resected. His abdomen was left open for possible re-do/intervention.
This report appears to be a partial report. Nevertheless, given his operative history, he has short bowel syndrome. Recommend loperamide for diarrhea. PPI. Complex carbohydrate containing diet, low fat. Replete electrolytes and vitamin B12.
Upon discharge, he should f/u with tertiary center with short bowel syndrome expertise ([place]).
Total Time Spent with Patient (in minutes): 35
Subjective
Subjective
Date of Service: May 03, 2024
Objective
Data Reviewed
Laboratory Data:
Laboratory Results
Total Bilirubin 0.5 mg/dl (0.2-1.3) 04/30/24 06:01
AST 24 U/L (17-59) 04/30/24 06:01
ALT 17 U/L (0-50) 04/30/24 06:01
Alkaline Phosphatase 63 U/L (38-126) 04/30/24 06:01
Vital Signs and I&O:
Vital Signs
Temp Pulse Resp BP Pulse Ox
97.8 F 58 21 115/68 99
05/03/24 08:34 05/03/24 08:34 05/03/24 08:34 05/03/24 08:34 05/03/24 08:34
I&O
05/02/24 05/03/24 05/04/24
06:59 06:59 06:59
Intake Total 1497 / 1497 960 / 960
Output Total 4150 / 4150 3650 / 3650
Balance -2653 / -2653 -2690 / -2690
[2024-05-03 13:20] LABS: Hemoglobin 11.3 g/dL (13.0-18.0); Mean Corp Hgb Conc. 34.2 g/dL (33.0-37.0); Mean Corpuscular Hgb 28.4 pg (27.0-31.0); Mean Corpuscular Volume 82.9 fL (80.0-94.0); Mean Platelet Volume 9.4 fL (7.4-10.4); Platelet Count 287 10^3/uL (130-400); Red Blood Cell Count 3.98 10^6/uL (4.70-6.10); Red Cell Dist. Width 13.9 % (11.5-14.5); White Blood Cell Count 7.3 10^3/uL (4.8-10.8)
[2024-05-03 13:39] LABS: Blood Urea Nitrogen 38 mg/dl (9-20); Calcium 8.3 mg/dl (8.4-10.2); Carbon Dioxide 32 mmol/L (22-30); Chloride 95 mmol/L (98-107); Estimated Creatinine Clearance 95 ml/min; Glucose 163 mg/dl (70-99); Potassium 5.4 mmol/L (3.5-5.1); Sodium 132 mmol/L (135-145); eGFR > 60.00
[2024-05-03] MEDS: IMODIUM 2 MG PO (16:21)
--- NOTE | 2024-05-03 16:24 | CM ---
PT released form [facility] custody . Pt lives at [address] [place] [id number] . He lives with Mercedes his GF and Roma friend. He said he does not drive . He is disabled. His home is 2 story with 0 steps to enter and 10 steps to Bedroom.He has
contacted [facility] to have friend be paid to be his equipment validation specialist.He uses a walker and cane. Pharmacy [facility].
PCP DR Valod Junior
PLAN Home with [facility] if covered.
[2024-05-03 16:37] VITALS: BP 118/77
[2024-05-03 17:59] LABS: Glucose - Point of Care 362 mg/dl (70-99)
[2024-05-03] MEDS: LOVENOX 40 MG SC (18:37)
[2024-05-03] MEDS: NOVOLOG FLEXPEN-LOW RESISTANCE 5 UNITS SC (18:39)
[2024-05-03 21:47] LABS: Glucose - Point of Care 187 mg/dl (70-99)
[2024-05-03] MEDS: LANTUS 0.1 UNITS SC (22:19)
[2024-05-03 23:58] VITALS: BP 140/78
[2024-05-04 00:46] LABS: tTG IgA Antibody <1.02 FLU (0.00-4.99)
[2024-05-04 01:06] LABS: Homocysteine 12 umol/L (0-15)
[2024-05-04 05:39] VITALS: BMI 20.9
[2024-05-04 07:15] LABS: Hematocrit 35.7 % (39.0-52.0); Hemoglobin 11.9 g/dL (13.0-18.0); Mean Corp Hgb Conc. 33.3 g/dL (33.0-37.0); Mean Corpuscular Hgb 28.3 pg (27.0-31.0); Mean Corpuscular Volume 84.8 fL (80.0-94.0); Mean Platelet Volume 9.8 fL (7.4-10.4); Platelet Count 298 10^3/uL (130-400); Red Blood Cell Count 4.21 10^6/uL (4.70-6.10); Red Cell Dist. Width 14.3 % (11.5-14.5); White Blood Cell Count 6.9 10^3/uL (4.8-10.8)
[2024-05-04 07:42] LABS: Blood Urea Nitrogen 34 mg/dl (9-20); Calcium 8.9 mg/dl (8.4-10.2); Carbon Dioxide 27 mmol/L (22-30); Chloride 95 mmol/L (98-107); Estimated Creatinine Clearance 106 ml/min; Glucose 229 mg/dl (70-99); Potassium 4.9 mmol/L (3.5-5.1); Sodium 133 mmol/L (135-145); eGFR > 60.00
[2024-05-04 07:53] VITALS: BP 141/93
[2024-05-04 08:14] LABS: Glucose - Point of Care 221 mg/dl (70-99)
[2024-05-04] MEDS: NOVOLOG FLEXPEN-LOW RESISTANCE 2 UNITS SC ×2 (08:19→13:00)
[2024-05-04] MEDS: CYANOCOBALAMIN 1000 MCG IM (08:19)
[2024-05-04] MEDS: NOVOLOG FLEXPEN 6 UNITS SC ×2 (08:19→13:00)
[2024-05-04] MEDS: ZESTRIL 10 MG PO (08:20)
[2024-05-04] MEDS: KLOR-CON 20 MEQ PO (08:20)
[2024-05-04] MEDS: PROTONIX 40 MG PO (08:20)
[2024-05-04] MEDS: KLONOPIN 1 MG PO (08:24)
[2024-05-04 12:05] LABS: Glucose - Point of Care 222 mg/dl (70-99)
--- NOTE | 2024-05-04 12:54 | W.PN.HOSP.TC ---
Today's Communication/Plan
-
add vit D
monitor sugars while on more complex carbs and low fat dietary options
if stable, can dc in 24 hours
Assessment / Plan
Assessment / Plan
Impression:
Patient is a 48y M with PMH significant for DM-I and history of mesenteric ischemia who presents to ED complaining of scrotal pain and swelling.
Anasarca.
Ongoing dysphagia with solids
Reports chronic diarrhea
Other conditions:
Type 1 diabetes
Chronic normocytic anemia.
History of small bowel resection
History of pylorotomy as a child
Mood disorder/polysubstance abuse
Plan:
Anasarca.
Patient reports significant weight gain and presenting with lower extremity and scrotal edema acute since last admission in the hospital on 04/18.
Denies any chest pain or shortness of breath.
Afebrile with normal white count.
CT scan of the abdomen and pelvis showed no evidence of ascites, intra-abdominal/pelvic collection.
LFTs within normal limits.
TSH normal.
Normal creatinine.
Protein/creatinine ratio 0.9 is against glomerular disease including nephrotic syndrome.
Echocardiogram with preserved biventricular function
In addition patient does have a history of small bowel resection '60 cm from ligaments of treitz down to terminal ileum were resected' per OP reports. Current presentation along with iron deficiency anemia, B12 deficiency and hypocalcemia could be
related to malabsorption.
Edema improved with diuresis. Stop Lasix. Start fluid restriction
Concern for malabsorption in the patient with prior history of small bowel resection, hypocalcemia, iron deficiency, vitamin B12 deficiency.
Patient reports chronic diarrhea
Differential diagnosis could be short gut syndrome after small bowel resection (that could explain brittle diabetes with fluctuating blood glucose), possibly pancreatic insufficiency, although reports no significant diarrhea.
Possibly bacterial overgrowth noted with low B12 and high folate level
Small bowel follow-through with rapid small bowel passage
IV iron
B12 repletion. MMA pending.
Calcium repletion. Vitamin D ordered.
Celiac panel pending
GS following
Patient with chronic dysphagia and prior history of esophageal stricture and what looks like food impaction required upper endoscopy at [facility]
Small bowel follow-through here with distal esophageal filling defect
Obtain medical records from [place]
Gastroenterology consult
Diabetes type 1.
With recurrent hypoglycemia
Recent hemoglobin A1c above 11.
Given recurrent hypoglycemia and malnutrition, will liberalize diet to regular.
Reduce standing dose of Lantus to 10 units. Agree with AC insulin.
Continue basal bolus protocol with serial Accu-Cheks.
Initiated on carbohydrate diet.
Mood Disorder
Polysubstance Abuse
- Stable. Continue current clonazepam.
- Monitor for any mood changes, etc.
DVT Prophylaxis: Lovenox
Code Status: Full
Anticipated Discharge: Within 24 hours
Subjective/Interval History
-
Date of Service: May 04, 2024
no complaints
Objective Data
-
Labs:
Laboratory Results
05/04/24
06:29
WBC 6.9
Hgb 11.9 L
Hct 35.7 L
Plt Count 298
Sodium 133 L
Potassium 4.9
Chloride 95 L
Carbon Dioxide 27
BUN 34 H
Creatinine 0.8
Glucose 229 H
Calcium 8.9
Vital Signs:
Vital Signs
Temp Pulse Resp BP Pulse Ox
97.7 F 88 21 141/93 100
05/04/24 07:53 05/04/24 07:53 05/04/24 07:53 05/04/24 07:53 05/04/24 07:53
I&O
05/03/24 05/04/24 05/05/24
06:59 06:59 06:59
Intake Total 960 / 960 2039
Output Total 3650 / 3650
Balance -2689 / -2689
Physical Exam
-
General: No Apparent Distress
HEENT: Normocephalic and Atraumatic
Respiratory: Negative Wheezes
Cardiac: Regular Rhythm and S1/S2
GI: Soft
Genito-urinary: No Costovertebral Tender
Neuro: AO x 3
Psych: Calm
Data Reviewed
-
Total Time Spent with Patient (in minutes): 41
Labs: Labs Reviewed by me
[2024-05-04] MEDS: VITAMIN D3 (cholecalciferol) 50 MCG PO (14:08)
[2024-05-04] MEDS: FERRLECIT IV (14:08)
--- NOTE | 2024-05-04 14:08 | W.PN.UPDATE ---
Update Note
Progress Note Update
patient opting to leave AMA; risks discussed. for patients safety as a brittle, type 1 diabetic, will send insulin scripts, BP meds and PPI to pharmacy
--- NOTE | 2024-05-04 14:09 | W.PN.GI.CBS2 ---
Today's Communication / Plan
-
.
Assessment / Plan
-
Pt is a 48yo presents with hx IDDM with admission in March with hyperglycemia, diabetic neuropathy with prior toe amp, prior cellulitis, prostatitis, polysubstance abuse, GERD, ischemic bowel- prior SB resection 3 years ago [facility]
qudon then SBO in June with medical management, further SB resection 4 months ago at [facility], pyloromyotomy as child , prior cardiac arrest, ? thyroid disease presents with scrotal pain and swelling with noted anasarca. In review of
labs noted with hbg 9-10 range with low iron sat and ferritin , labile FBS from 52- 489, albumin 3.3. Recent tox screen in [place] for amphetamine and methamphetamines with last use in March. Pt completed UGI with SBFT today with noted Rapid
small bowel transit with contrast reaching the colon in approximately 35 minutes. Normal small bowel fold pattern and caliber.Thin, elongated filling defect in the distal third of the esophagus. Uncertain etiology. Recommend follow-up endoscopy and
CT noted Generalized anasarca with extensive scrotal edema/swelling. There is no discrete fluid collection. Moderate colonic stool burden. Asked to see for anasarca, concern for malnutrition and abnormal esophageal imaging.
Pt's operative report from 11/2023 was reviewed. It reported pt's small bowel was non-viable from 60 cm from the ligament of Treitz all the way down to terminal ileum, and was resected. His abdomen was left open for possible re-do/intervention.
This report appears to be a partial report. Nevertheless, given his operative history, he has short bowel syndrome. Recommend loperamide for diarrhea. PPI. Complex carbohydrate containing diet, low fat. Replete electrolytes and vitamin B12.
Upon discharge, he should f/u with tertiary center with short bowel syndrome expertise ([place]).
Will contact [facility] for OP f/u. GI s/o.
Total Time Spent with Patient (in minutes): 35
Subjective
Subjective
Date of Service: May 04, 2024
Tolerating diet
Objective
Data Reviewed
Laboratory Data:
Laboratory Results
05/04/24 06:29
05/04/24 06:29
Laboratory Results
Total Bilirubin 0.5 mg/dl (0.2-1.3) 04/30/24 06:01
AST 24 U/L (17-59) 04/30/24 06:01
ALT 17 U/L (0-50) 04/30/24 06:01
Alkaline Phosphatase 63 U/L (38-126) 04/30/24 06:01
Vital Signs and I&O:
Vital Signs
Temp Pulse Resp BP Pulse Ox
97.7 F 88 21 141/93 100
05/04/24 07:53 05/04/24 07:53 05/04/24 07:53 05/04/24 07:53 05/04/24 07:53
I&O
05/03/24 05/04/24 05/05/24
06:59 06:59 06:59
Intake Total 960 / 960 2039
Output Total 3650 / 3650
Balance -2690 / -[id number]
--- NOTE | 2024-05-04 14:35 | PTCARENOTE ---
pt signing out AMA, dr villalobos aware came to bedside and signed AMA paper. IV taken out, pt education given. Pt leaving with partner.
--- NOTE | 2024-05-04 14:50 | CM ---
Pt leaving AMA.
Pt has a ride home.
[facility] set up for patent yesterday.
PLAN A [facility] referral in care port
[2024-05-04 16:04] LABS: Endomysial IgA Antibody Titer <1:10 (<1:10)
[2024-05-04 23:51] LABS: IgA 194 mg/dl (70-400)
== END 2024-05-04 15:16 | disposition left against medical advice (07) | DRG 948 ==
LOC: 3 WEST ACU 03:51
PROVIDERS: Hospitalist; Internal Medicine; Nurse Practitioner Family; Physician Assistant; ADMITTING PHYSICIAN Hospitalist; ATTENDING PHYSICIAN Internal Medicine; CONSULT PHYSICIAN Internal Medicine Gastroenterology; EMERGENCY PHYSICIAN Student in an Organized Health Care Education/Training Program
DX: R60.1 Generalized edema (principal); K90.829 Short bowel syndrome, unspecified; K55.9 Vascular disorder of intestine, unspecified; K22.2 Esophageal obstruction; E10.40 Type 1 diabetes mellitus with diabetic neuropathy, unspecified; E10.649 Type 1 diabetes mellitus with hypoglycemia without coma; F39 Unspecified mood [affective] disorder; Z53.29 Procedure and treatment not carried out because of patient's decision for other reasons; K21.9 Gastro-esophageal reflux disease without esophagitis; Z86.74 Personal history of sudden cardiac arrest; E07.9 Disorder of thyroid, unspecified; F17.290 Nicotine dependence, other tobacco product, uncomplicated; Z79.4 Long term (current) use of insulin; N50.82 Scrotal pain; D64.9 Anemia, unspecified; F41.9 Anxiety disorder, unspecified; Z79.899 Other long term (current) drug therapy; E53.8 Deficiency of other specified B group vitamins; E55.9 Vitamin D deficiency, unspecified; I10 Essential (primary) hypertension; F15.90 Other stimulant use, unspecified, uncomplicated
CPT/HCPCS: 71046; 74177; 74246; 74248; 80048; 80053; 82248; 82306; 82330; 82570; 82607; 82652; 82728; 82746; 82784; 82805; 82947; 82962; 83090; 83516; 83540; 83550; 83880; 83921; 84156; 84443; 84484; 85025; 85027; 85045; 86231; 87070; 93306; 93970; 99285; J1610; J2916; Q9967